=== PATIENT | female | born 1960 | race Caucasian/White ===

== ENCOUNTER 2017-08-02 16:54 | Outpatient (CLI) | payer MEDICARE | END 2017-08-02 16:55 | disposition critical access hospital (66) | LOC: EMS 16:54 | PROVIDERS: ATTEND Surgery | DX: R03.1 Nonspecific low blood-pressure reading (principal) | CPT/HCPCS: A0425; A0427 ==

== ENCOUNTER 2017-08-02 17:05 | Emergency (ER) | payer MEDICARE ==
[2017-08-02] MEDS ORDERED: SODIUM CHLORIDE 0.9% 1,000 ML IV ONE (17:25)
--- NOTE | 2017-08-02 17:27 | ED Physician Documentation ---
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 She was getting up and doing light work around the house after watching TV shows for an hour and a half when she started to feel flushed and nauseous, she was checking her blood pressure, the nurses notes that it was 70 over something, she says it was actually 112/46 with heart rate of 96. Then she had a short syncopal episode without injury. She still still feels weak and dizzy. 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 - Present Medications Home Medications: Ambulatory Orders Medication Instructions Recorded Confirmed Oxybutynin [Ditropan] 5 mg PO DAILY 07/30/14 08/05/14 Levothyroxine Sodium 07/18/16 Cetirizine [ZyrTEC] 10 mg PO DAILY 08/02/17 08/02/17 Potassium Chloride 10 meq PO DAILY #5 tablet.er 08/02/17 Pseudoephedrine [Sudafed] 30 mg PO Q6H 08/02/17 08/02/17 - Allergies Allergies/Adverse Reactions: Allergies Allergy/AdvReac Type Severity Reaction Status Date / Time codeine [Codeine] Allergy Intermediate vomiting Verified 08/05/14 12:31 morphine Allergy Intermediate vomiting Verified 08/05/14 12:31 - Social History Does the pt smoke?: No Smoking Status: Never smoker Does the pt drink ETOH?: Yes Does the pt have substance abuse?: No - Family History Family history: reports: Non contributory PD ED PE NORMAL - Vitals Vital signs reviewed: Yes - General General: Alert and oriented X 3, No acute distress - HEENT HEENT: PERRL, EOMI - Neck Neck: Supple, no meningeal sign, No bony TTP - Cardiac Cardiac: RRR, No murmur - Respiratory Respiratory: No respiratory distress, Clear bilaterally - Abdomen Abdomen: Normal bowel sounds, Soft, Non tender - Back Back: No CVA TTP, No spinal TTP - Derm Derm: Normal color, Warm and dry - Extremities Extremities: No edema, No calf tenderness / cord - Neuro Neuro: Alert and oriented X 3, Normal speech - Psych Psych: Normal mood, Normal affect NIHSS - Time Time: 17:20 - Level of Consciousness Level of consciousness: (0) Alert, Keenly responsive LOC Questions: (0) Answers both Q's correct LOC Commands: (0) Performs both correctly - Gaze Best Gaze: (0) Normal - Visual Visual: (0) No loss - Facial Palsy Facial Palsy: (0) Normal, symmetrical movement - Motor Arms (both separate) Motor Arm (right): (0) No drift Motor Arm (left): (0) No drift - Motor Legs (both separate) Motor Leg (right): (0) No drift Motor Leg (left): (0) No drift - Limb Ataxia Limb Ataxia: (0) Absent - Sensory Sensory: (0) Normal - Best Language Best Language: (0) No aphasia - Dysarthria Dysarthria: (0) Normal - Extinction and Inattention (formally neg Extinction and inattention: (0) No abnormality - Total Score/Results Total Score/Result: 0 Results - Vitals Vitals: Vital Signs - 24 hr 08/02/17 08/02/17 17:06 17:52 Temperature 37.0 C 36.9 C Heart Rate 69 77 Respiratory 16 18 Rate Blood Pressure 109/76 153/92 H O2 Saturation 100 97 Oxygen O2 Source Room air - EKG (time done) 1712 Rate: Rate (enter#) (87) Rhythm: NSR [place]: Normal Intervals: Prolonged QT (Borderline at 504 ms corrected.) QRS: Low voltage Computer interpretation: Agree with computer - Labs Labs: Laboratory Tests 08/02/17 08/02/17 08/02/17 17:35 17:35 17:35 WBC 8.2 RBC 4.12 L Hgb 12.2 Hct 36.3 L MCV 88.1 MCH 29.7 MCHC 33.7 RDW 14.2 Plt Count 195 MPV 8.7 Neut # 4.3 Lymph # 3.2 [place] # 0.5 Eos # 0.2 Baso # 0.1 Absolute Nucleated RBC 0.01 Nucleated RBC % 0.1 Sodium 138 Potassium 3.0 L Chloride 104 Carbon Dioxide 23 Anion Gap 11.0 BUN 8 Creatinine 1.0 Estimated GFR (MDRD) 58 L Glucose 115 H Calcium 8.7 Magnesium 1.8 Total Bilirubin 0.5 AST 27 ALT 27 Alkaline Phosphatase 47 Troponin I < 0.04 Total Protein 6.2 L Albumin 3.7 Globulin 2.5 Albumin/Globulin Ratio 1.5 Lipase 25 Cortisol Urine Color Urine Clarity Urine pH Ur Specific [place] Urine Protein Urine Glucose (UA) Urine Ketones Urine Occult Blood Urine Nitrite Urine Bilirubin Urine Urobilinogen Ur Leukocyte Esterase Ur Microscopic Review Urine Culture Comments Ethyl Alcohol < 5.0 08/02/17 08/02/17 17:35 18:21 WBC RBC Hgb Hct MCV MCH MCHC RDW Plt Count MPV Neut # Lymph # [place] # Eos # Baso # Absolute Nucleated RBC Nucleated RBC % Sodium Potassium Chloride Carbon Dioxide Anion Gap BUN Creatinine Estimated GFR (MDRD) Glucose Calcium Magnesium Total Bilirubin AST ALT Alkaline Phosphatase Troponin I Total Protein Albumin Globulin Albumin/Globulin Ratio Lipase Cortisol 4.2 Urine Color YELLOW Urine Clarity CLEAR Urine pH 6.0 Ur Specific [place] >=1.030 H Urine Protein NEGATIVE Urine Glucose (UA) NEGATIVE Urine Ketones NEGATIVE Urine Occult Blood NEGATIVE Urine Nitrite NEGATIVE Urine Bilirubin NEGATIVE Urine Urobilinogen 0.2 (NORMAL) Ur Leukocyte Esterase NEGATIVE Ur Microscopic Review NOT INDICATED Urine Culture Comments NOT INDICATED Ethyl Alcohol PD MEDICAL DECISION MAKING - ED course ED course: 57-year-old woman with syncopal episode and low blood pressure Prior to arrival , although I am getting conflicting measurements on what was it with either 70 systolic or 112/46. Regardless she has unremarkable vital signs and normal examination here, normal EKG. Lab work was notable for a cortisol level that was in the appropriate range for the time of day and hypokalemia which is a recurrent problem for her. She does have high urine specific gravity suggesting dehydration. Treatment in the emergency department consisted of 2 L of IV fluids and oral potassium supplementation. Departure - Departure Disposition: 01 Home, Self Care Clinical Impression: Orthostatic hypotension, Dehydration, Hypokalemia Condition: Good Record reviewed to determine appropriate education?: Yes Instructions: Hypokalemia Dc, ED Dehydration Prescriptions: Potassium Chloride 10 meq PO DAILY #5 tablet.er Comments: Call your doctor to arrange a follow-up appointment, make the next available appointment. In the interim, return anytime if worse or if new symptoms develop. Your blood pressure was elevated today on check into the emergency department. This does not mean that you have hypertension, it is a common phenomenon to come to the emergency department and have elevated blood pressure. I recommend that she see your primary care physician within the week to have it rechecked when you are feeling better.
[2017-08-02 17:42] LABS: BASOPHILS # (AUTO) 0.1 10^3/uL (0.0-0.1); EOSINOPHILS # (AUTO) 0.2 10^3/uL (0.0-0.7); HCT - HEMATOCRIT 36.3 % (37.0-47.0); HGB - HEMOGLOBIN 12.2 g/dL (12.0-16.0); LYMPHOCYTES # (AUTO) 3.2 10^3/uL (1.5-3.5); LYMPHOCYTES % (AUTO) 38.8 %; MEAN CORPUSCULAR HEMOGLOBIN 29.7 pg (27.0-31.0); MEAN CORPUSCULAR HGB CONC 33.7 g/dL (32.0-36.0); MEAN CORPUSCULAR VOLUME 88.1 fL (81.0-99.0); MEAN PLATELET VOLUME 8.7 fL (7.9-10.8); MONOCYTES # (AUTO) 0.5 10^3/uL (0.0-1.0); MONOCYTES % (AUTO) 5.6 %; NEUTROPHILS # (AUTO) 4.3 10^3/uL (1.5-6.6); NEUTROPHILS % (AUTO) 52.6 %; NUCLEATED RED BLOOD CELLS AUTO 0.1 /100WBC; RED BLOOD COUNT 4.12 10^6/uL (4.20-5.40); RED CELL DISTRIBUTION WIDTH 14.2 % (12.0-15.0); UNCORRECTED WHITE BLOOD COUNT 8.2 x10^3/uL; WHITE BLOOD COUNT 8.2 x10^3/uL (4.8-10.8)
[2017-08-02 17:54] LABS: ALBUMIN/GLOBULIN RATIO 1.5 (1.0-2.2); BILIRUBIN,TOTAL 0.5 mg/dL (0.2-1.0); BUN - BLOOD UREA NITROGEN 8 mg/dL (6-20); CALCIUM 8.7 mg/dL (8.5-10.3); CARBON DIOXIDE - CO2 23 mmol/L (21-32); CHLORIDE 104 mmol/L (101-111); GFR - MDRD 58 (>89); GLUCOSE 115 mg/dL (70-100); LIPASE 25 U/L (22-51); MAGNESIUM 1.8 mg/dL (1.7-2.8); SODIUM 138 mmol/L (135-145); TOTAL PROTEIN 6.2 g/dL (6.7-8.2)
[2017-08-02 18:25] LABS: BILIRUBIN,URINE NEGATIVE (NEGATIVE)
[2017-08-02 18:27] LABS: UA CHARGE (STRIP ONLY) YES; UR CULTURE IF IND NOT INDICATED
[2017-08-02] MEDS ORDERED: POTASSIUM BICARB 25 MEQ TABLET PO STA (18:47)
[2017-08-02] MEDS ORDERED: POTASSIUM BICARB 25 MEQ TABLET PO ONE (19:02)
[2017-08-02 19:29] VITALS: BP 100/68
== END 2017-08-02 19:30 | disposition home or self-care (01) ==
LOC: EDUNIT# → ED 17:05
DX: I95.1 Orthostatic hypotension (principal); E86.0 Dehydration; E87.6 Hypokalemia; R03.0 Elevated blood-pressure reading, without diagnosis of hypertension; E23.0 Hypopituitarism; E03.9 Hypothyroidism, unspecified; Z79.52 Long term (current) use of systemic steroids
CPT/HCPCS: 36415; 80053; 81003; 82533; 83690; 83735; 84484; 85025; 93005; 96360; 99284; 99285; A9270; G0480; 80320; 81001; 87086

== ENCOUNTER 2017-12-23 23:32 | Emergency (ER) | payer MEDICARE ==
[2017-12-23 23:46] VITALS: BP 114/81
--- NOTE | 2017-12-23 23:53 | ED Physician Documentation ---
PD HPI HEENT - Stated complaint Stated Complaint: BLEEDING RT EAR - Chief complaint Chief Complaint: Heent - History obtained from History obtained from: Patient - History of Present Illness Timing - onset: Today Timing - details: Abrupt onset Location: Right ear Similar symptoms before: Has not had sx before Recently seen: Not recently seen - Additional information Additional information: Patient is a 57 year old female presenting to the emergency department for ear pain. Patient states that tonight her ear was bleeding and clots were coming out. Patient states that she had cleaned with a q-tip earlier and also had put her finger in her ear. Review of Systems Constitutional: reports: Reviewed and negative Eyes: reports: Reviewed and negative Ears: reports: Other (ear bleeding) Nose: reports: Reviewed and negative Throat: reports: Reviewed and negative Cardiac: reports: Reviewed and negative Respiratory: reports: Reviewed and negative GI: reports: Reviewed and negative : reports: Reviewed and negative Skin: reports: Reviewed and negative Musculoskeletal: reports: Reviewed and negative Neurologic: denies: Headache, Head injury Psychiatric: reports: Reviewed and negative Endocrine: reports: Reviewed and negative Immunocompromised: denies: Immunocompromised PD PAST MEDICAL HISTORY - Past Medical History Cardiovascular: None Respiratory: None Neuro: Fainting Endocrine/Autoimmune: HyPOthyroidism GI: GERD : Kidney stones HEENT: None Psych: None Musculoskeletal: Chronic back pain Derm: None Other Past Medical History: Hypopituitary, hypothyroid - Past Surgical History 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 - Present Medications Home Medications: Ambulatory Orders Medication Instructions Recorded Confirmed Oxybutynin [Ditropan] 5 mg PO DAILY 07/30/14 08/05/14 Levothyroxine Sodium 0.125 mcg PO DAILY 07/18/16 Cetirizine [ZyrTEC] 10 mg PO DAILY 08/02/17 08/02/17 - Allergies Allergies/Adverse Reactions: Allergies Allergy/AdvReac Type Severity Reaction Status Date / Time codeine [Codeine] Allergy Intermediate vomiting Verified 12/23/17 23:47 morphine Allergy Intermediate vomiting Verified 12/23/17 23:47 - Social History Does the pt smoke?: No Smoking Status: Never smoker Does the pt drink ETOH?: Yes Does the pt have substance abuse?: No - Immunizations Immunizations are current?: Yes PD ED PE NORMAL - Vitals Vital signs reviewed: Yes - General General: Alert and oriented X 3 - HEENT HEENT: PERRL, Moist mucous membranes - Neck Neck: Supple, no meningeal sign - Cardiac Cardiac: RRR - Respiratory Respiratory: No respiratory distress - Abdomen Abdomen: Non distended - Derm Derm: Normal color - Extremities Extremities: No deformity - Neuro Neuro: Alert and oriented X 3, No motor deficit, Normal speech Eye Opening: Spontaneous Motor: Obeys Commands Verbal: Oriented GCS Score: 15 - Psych Psych: Normal mood PD ED PE EXPANDED - HEENT HEENT: Other (small superficial laceration in right auditory canal, no active bleeding but clotted blood in the canal) Results - Vitals Vitals: Vital Signs - 24 hr 12/23/17 12/23/17 23:44 23:46 Temperature 36.6 C Heart Rate 87 Respiratory 16 Rate Blood Pressure 114/81 H O2 Saturation 95 Oxygen O2 Source Room air PD MEDICAL DECISION MAKING - ED course Complexity details: reviewed old records, re-evaluated patient, considered differential, d/w patient ED course: patient was seen and examined at bedside. Patient's canal was cleaned and revealed a very small, superficial laceration, likely secondary to the patient' s nail. there was no active bleeding and no further work up was necessary. Patient was stable for discharge with outpatient follow up. Departure - Departure Disposition: 01 Home, Self Care Clinical Impression: Laceration of ear canal Condition: Good Instructions: ED Laceration All Follow-Up: Radha Moran MD [Primary Care Provider] - As Needed Comments: Your symptoms today are being caused by a cut in your ear canal, likely secondary to your nails. You will need to keep it clean and dry and you can apply topical antibiotic if needed. You should follow up with your doctor as needed. The area may bleed again but it is not emergent. Discharge Date/Time: 12/24/17 00:03
== END 2017-12-24 00:03 | disposition home or self-care (01) ==
LOC: ED 23:32
DX: S01.311A Laceration without foreign body of right ear, initial encounter (principal); W22.8XXA Striking against or struck by other objects, initial encounter; E03.9 Hypothyroidism, unspecified
CPT/HCPCS: 99283

== ENCOUNTER 2018-05-31 16:41 | Emergency (ER) | payer MEDICARE ==
[2018-05-31 16:54] VITALS: BP 118/90
--- NOTE | 2018-05-31 17:14 | ED Physician Documentation ---
History of Present Illness - Stated complaint Stated Complaint: NECK PX/HAND NUMBNESS - Chief complaint Chief Complaint: General - History obtained from History obtained from: Patient - History of Present Illness Timing: Other (Since May 20 she has had numbness and tingling especially on the thumb side of her left hand with burning pain down the arm since being manipulated by a chiropractor. 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 - Present Medications Home Medications: Ambulatory Orders Medication Instructions Recorded Confirmed Oxybutynin [Ditropan] 5 mg PO DAILY 07/30/14 08/05/14 Levothyroxine Sodium 0.125 mcg PO DAILY 07/18/16 Cetirizine [ZyrTEC] 10 mg PO DAILY 08/02/17 08/02/17 Gabapentin 300 mg PO TID #90 capsule 05/31/18 HYDROcod/ACETAM 5/325 [[place] 5/325] 1 - 2 ea PO Q6H PRN #15 tablet 05/31/18 - Allergies Allergies/Adverse Reactions: Allergies Allergy/AdvReac Type Severity Reaction Status Date / Time codeine [Codeine] Allergy Intermediate vomiting Verified 05/31/18 16:54 morphine Allergy Intermediate vomiting Verified 05/31/18 16:54 - Social History Does the pt smoke?: No Smoking Status: Never smoker Does the pt drink ETOH?: Yes Does the pt have substance abuse?: No - Immunizations Immunizations are current?: Yes PD ED PE NORMAL - Vitals Vital signs reviewed: Yes - General General: Alert and oriented X 3, No acute distress - Neck Neck: Supple, no meningeal sign, No bony TTP - Extremities Extremities: Other (She has slightly weak scout leaser strength and thumb extension on the left with a week tricep reflex and numbness on the radial side of the hand.) - Neuro Neuro: Alert and oriented X 3, Normal speech Results - Vitals Vitals: Vital Signs - 24 hr 05/31/18 16:48 Temperature 37.3 C Heart Rate 87 Respiratory 18 Rate Blood Pressure 118/90 H O2 Saturation 98 Oxygen O2 Source Room air PD MEDICAL DECISION MAKING - ED course ED course: 58-year-old woman with signs and symptoms of what is likely a left C6 radiculopathy. No indication for emergent MRI and she already has a referral for one, just needs to be scheduled. She was given gabapentin and painkillers. She is already taking ibuprofen. - Sepsis Event Vital Signs: Vital Signs - 24 hr 05/31/18 16:48 Temperature 37.3 C Heart Rate 87 Respiratory 18 Rate Blood Pressure 118/90 H O2 Saturation 98 Oxygen O2 Source Room air Departure - Departure Disposition: Home, Self Care Clinical Impression: Cervical radiculopathy at C6 Condition: Good Record reviewed to determine appropriate education?: Yes Instructions: ED Cervical Radiculopathy Prescriptions: Gabapentin 300 mg PO TID #90 capsule HYDROcod/ACETAM 5/325 [[place] 5/325] 1 - 2 ea PO Q6H PRN #15 tablet PRN Reason: Pain Comments: Your blood pressure was elevated today on check into the emergency department. This does not mean that you have hypertension, it is a common phenomenon to come to the emergency department and have elevated blood pressure. I recommend that you see your primary care physician within the week to have it rechecked when you are feeling better. Discharge Date/Time: 05/31/18 17:35
== END 2018-05-31 17:35 | disposition home or self-care (01) ==
LOC: ED 16:41
DX: M54.12 Radiculopathy, cervical region (principal); R03.0 Elevated blood-pressure reading, without diagnosis of hypertension
CPT/HCPCS: 99283

== ENCOUNTER 2018-06-02 23:08 | Emergency (ER) | payer MEDICARE ==
[2018-06-02 23:16] VITALS: BP 141/67
[2018-06-02] MEDS ORDERED: ACETAMINOPHEN 500 MG TABLET PO STA (23:48)
--- NOTE | 2018-06-03 00:07 | ED Physician Documentation ---
History of Present Illness - Stated complaint Stated Complaint: NUMNESS,TINGLING ZAK ARMS - Chief complaint Chief Complaint: Ext Problem - History obtained from History obtained from: Patient - Additonal information Additional information: 58-year-old female presents to the emergency department with ongoing neck pain which radiates into her left arm. The patient mostly complains ofNumbness and tingling which radiates into her hands. The patient's symptoms have been progressively worsening over the past 10 days.Is concerned she has a herniated disc The patient. The patient denies fevers, motor weakness or acute trauma. The patient's symptoms are somewhat improved with her gabapentin, [place] and Flexeril but tonight were not controlled with these medications. The patient denies headache, fever, motor weakness, saddle anesthesia or urinary retention. No other associated symptoms. The patient is here this evening hoping for a clear answer for the etiology of her pain. The patient has been attempting to get an outpatient MRI. Review of Systems Constitutional: denies: Fever Eyes: denies: Loss of vision Ears: denies: Ear pain Nose: denies: Congestion Throat: denies: Sore throat Cardiac: denies: Chest pain / pressure Respiratory: denies: Dyspnea, Cough GI: denies: Abdominal Pain : denies: Dysuria Skin: denies: Rash Musculoskeletal: reports: Neck pain Neurologic: reports: Numbness. 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 - Present Medications Home Medications: Ambulatory Orders Medication Instructions Recorded Confirmed Gabapentin 300 mg PO TID #90 capsule 05/31/18 06/02/18 HYDROcod/ACETAM 5/325 [[place] 5/325] 1 - 2 ea PO Q6H PRN #15 tablet 05/31/1810/08 Cyclobenzaprine [Flexeril] 1 tab PO TID PRN 06/02/18 06/02/18 Naproxen [Naprosyn] 1 tab PO BID 06/02/18 06/02/18 - Allergies Allergies/Adverse Reactions: Allergies Allergy/AdvReac Type Severity Reaction Status Date / Time codeine [Codeine] Allergy Intermediate vomiting Verified 06/02/18 23:16 morphine Allergy Intermediate vomiting Verified 06/02/18 23:16 - Social History Does the pt smoke?: No Smoking Status: Never smoker Does the pt drink ETOH?: Yes Does the pt have substance abuse?: No - Immunizations Immunizations are current?: Yes - POLST Patient has POLST: No PD ED PE NORMAL - General General: Alert and oriented X 3 - HEENT HEENT: Atraumatic, PERRL, EOMI, Ears normal - Neck Neck: Supple, no meningeal sign, No JVD, No bruit, Other (The patient has paraspinal muscle tenderness in the left paraspinal muscles that continues into the trapezius) - Cardiac Cardiac: RRR - Respiratory Respiratory: No respiratory distress - Derm Derm: Normal color - Extremities Extremities: No deformity, Normal ROM s pain, Other (The patient has full active range of motion of the bilateral upper extremities, the patient has 5/5 muscle strength in the bilateral upper extremities and equal fresh foods clerk strength bilaterally. The patient has normal bilateral radial pulses and brisk cap refill and normal temperature in the bilateral upper extremities. There is no evidence of muscle wasting in the biceps or any other major muscle groups in the upper extremities) - Neuro Neuro: Alert and oriented X 3, bridges and buildings supervisor 2-12 intact, No motor deficit - Psych Psych: Normal affect Results - Vitals Vitals: Vital Signs - 24 hr 06/02/18 23:13 Temperature 36.5 C Heart Rate 85 Respiratory 18 Rate Blood Pressure 141/67 H O2 Saturation 99 Oxygen O2 Source Room air PD MEDICAL DECISION MAKING - ED course ED course: The patient drove herself to the emergency department, so I was unable to give her any medications that would alter her to help manage her acute pain. The patient wanted a clear answer for the etiology for her pain, I offered her a CT scan but the patient declined. I explained that our hospital does not have the capabilities to do an MRI on Sunday at 11:30 PM. The patient became upset with me and stated that I was not helping her. I offered to arrange transfer to a hospital that could perform an MRI for the patient. But the patient instead decided to leave the emergency department on her own accord. The patient had no gait abnormality and had no evidence of neurologic dysfunction upon leaving the emergency department. The patient did not wait for discharge instructions - Sepsis Event Vital Signs: Vital Signs - 24 hr 06/02/18 23:13 Temperature 36.5 C Heart Rate 85 Respiratory 18 Rate Blood Pressure 141/67 H O2 Saturation 99 Oxygen O2 Source Room air Departure - Departure Disposition: ED [place] Clinical Impression: Cervical radicular pain Condition: Good Discharge Date/Time: 06/02/18 23:57
== END 2018-06-02 23:57 | disposition left against medical advice (07) ==
LOC: ED 23:08
DX: M54.12 Radiculopathy, cervical region (principal); Z53.20 Procedure and treatment not carried out because of patient's decision for unspecified reasons
CPT/HCPCS: 99283

== ENCOUNTER 2019-02-06 18:49 | Emergency (ER) | payer MEDICARE ==
--- NOTE | 2019-02-06 20:14 | ED Physician Documentation ---
PD HPI SYNCOPE - Stated complaint Stated Complaint: LBP/PASSED OUT/CP - Chief complaint Chief Complaint: Cardiac - History obtained from History obtained from: Patient - History of Present Illness Witnessed: Unwitnessed Timing - onset: Enter time (18:00) Duration: Minutes Preceding symptoms: Light headed, Generalized weakness Injury occurred: None Pain level max: 0 Pain level now: 0 Similar symptoms before: No diagnosis, Work up / diagnostics (patient says she has had similar episodes in the past and has had many admissions with w/u that did not reveal etiology) Recently seen: Not recently seen - Additional information Additional information: was sitting at home watching TV at 6 PM when she found that she had either passed out or fell asleep in the chair. She stood up and immediately had generalized weakness, lightheadedness and syncopal episode. She awoke on floor, got to phone to call family and she had another syncopal episode during the conversation. She arrives to ED only feeling tired but otherwise well. She also had left-sided chest pain for few minutes between syncopal episodes that radiated to left axilla. Review of Systems Constitutional: reports: Reviewed and negative Eyes: reports: Reviewed and negative Cardiac: reports: Chest pain / pressure (resolved). denies: Palpitations, Pedal edema, Calf pain Respiratory: reports: Reviewed and negative GI: reports: Reviewed and negative : denies: Incontinent Neurologic: reports: Generalized weakness (immediately preceding syncope, resolved), Syncope. 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 - Present Medications Home Medications: Ambulatory Orders Medication Instructions Recorded Confirmed Gabapentin 300 mg PO TID #90 capsule 05/31/18 06/02/18 HYDROcod/ACETAM 5/325 [[place] 5/325] 1 - 2 ea PO Q6H PRN #15 tablet 05/31/18 06/02/18 Cyclobenzaprine [Flexeril] 1 tab PO TID PRN 06/02/18 06/02/18 Naproxen [Naprosyn] 1 tab PO BID 06/02/18 06/02/18 - Allergies Allergies/Adverse Reactions: Allergies Allergy/AdvReac Type Severity Reaction Status Date / Time codeine [Codeine] Allergy Intermediate vomiting Verified 06/02/18 23:16 morphine Allergy Intermediate vomiting Verified 06/02/18 23:16 - Social History Does the pt smoke?: No Smoking Status: Never smoker Does the pt drink ETOH?: Yes Does the pt have substance abuse?: Yes Substance Use and Type: Marijuana - Immunizations Immunizations are current?: Yes - POLST Patient has POLST: No PD ED PE NORMAL - Vitals Vital signs reviewed: Yes - General General: Alert and oriented X 3, No acute distress, Well developed/nourished - HEENT HEENT: PERRL, EOMI, Moist mucous membranes - Neck Neck: Supple, no meningeal sign, No bony TTP - Cardiac Cardiac: RRR, No murmur, No gallop, No rub - Respiratory Respiratory: No respiratory distress, Clear bilaterally - Abdomen Abdomen: Soft, Non tender - Derm Derm: Normal color, Warm and dry - Extremities Extremities: No edema - Neuro Neuro: Alert and oriented X 3, enrollment management manager 2-12 intact, No motor deficit, No sensory deficit, Normal speech Eye Opening: Spontaneous Motor: Obeys Commands Verbal: Oriented GCS Score: 15 Results - Vitals Vitals: Oxygen O2 Source Room air - EKG (time done) No standard instances Rate: Rate (enter#) (78) Rhythm: NSR [place]: Normal Intervals: Normal [place] QRS: Normal Ischemia: Normal ST segments, T wave inversion (V3, flat/biphasic V4) - Labs Labs: Laboratory Tests 02/06/19 02/06/19 02/06/19 19:00 19:00 19:00 WBC 7.6 RBC 4.33 Hgb 13.3 Hct 38.4 MCV 88.6 MCH 30.8 MCHC 34.7 RDW 14.7 Plt Count 203 MPV 9.9 Neut # (Auto) 3.4 Lymph # (Auto) 3.4 [place] # (Auto) 0.4 Eos # (Auto) 0.3 Baso # (Auto) 0.0 Absolute Nucleated RBC 0.01 Nucleated RBC % 0.2 Sodium 139 Potassium 3.1 L Chloride 102 Carbon Dioxide 27 Anion Gap 10.0 BUN 12 Creatinine 0.9 Estimated GFR (MDRD) 65 L Glucose 84 Calcium 9.0 Total Bilirubin 0.2 AST 18 ALT 17 Alkaline Phosphatase 65 Troponin I < 0.04 Total Protein 6.8 Albumin 4.2 Globulin 2.6 Albumin/Globulin Ratio 1.6 Lipase 38 - Rads (name of study) chest xray Radiology: Prelim report reviewed, See rad report PD MEDICAL DECISION MAKING - ED course Complexity details: reviewed old records, reviewed results, re-evaluated patient, considered differential, d/w patient ED course: remained asymptomatic during ED stay Departure - Departure Disposition: 01 Home, Self Care Clinical Impression: Hypokalemia Syncope Qualifiers: Syncope type: unspecified Qualified Code(s): R55 - Syncope and collapse Hypotension Qualifiers: Hypotension type: unspecified hypotension type Qualified Code(s): I95.9 - Hypotension, unspecified Condition: Good Instructions: ED Chest Pain Atypical Unkn Cause, ED Potassium Deficiency, ED Fainting Unkn Cause Follow-Up: Jenna Skinner PA [Primary Care Provider] - Discharge Date/Time: 02/06/19 22:01
[2019-02-06 20:16] LABS: BASOPHILS % (AUTO) 0.6 %; EOSINOPHILS # (AUTO) 0.3 10^3/uL (0.0-0.7); EOSINOPHILS % (AUTO) 3.9 %; HGB - HEMOGLOBIN 13.3 g/dL (12.0-16.0); LYMPHOCYTES # (AUTO) 3.4 10^3/uL (1.5-3.5); MEAN CORPUSCULAR HEMOGLOBIN 30.8 pg (27.0-31.0); MEAN CORPUSCULAR HGB CONC 34.7 g/dL (32.0-36.0); MEAN CORPUSCULAR VOLUME 88.6 fL (81.0-99.0); MEAN PLATELET VOLUME 9.9 fL (7.9-10.8); MONOCYTES # (AUTO) 0.4 10^3/uL (0.0-1.0); MONOCYTES % (AUTO) 5.2 %; NEUTROPHILS # (AUTO) 3.4 10^3/uL (1.5-6.6); NEUTROPHILS % (AUTO) 45.3 %; PLT - PLATELET COUNT 203 10^3/uL (130-450); RED BLOOD COUNT 4.33 10^6/uL (4.20-5.40); RED CELL DISTRIBUTION WIDTH 14.7 % (12.0-15.0); WHITE BLOOD COUNT 7.6 x10^3/uL (4.8-10.8)
[2019-02-06 20:32] LABS: ALBUMIN 4.2 g/dL (3.2-5.5); ALBUMIN/GLOBULIN RATIO 1.6 (1.0-2.2); BILIRUBIN,TOTAL 0.2 mg/dL (0.2-1.0); CREATININE 0.9 mg/dL (0.4-1.0); TOTAL PROTEIN 6.8 g/dL (6.7-8.2)
[2019-02-06] MEDS ORDERED: POTASSIUM BICARB 25 MEQ TABLET PO STA (20:34)
[2019-02-06] MEDS ORDERED: SODIUM CHLORIDE 0.9% 1,000 ML IV STA (20:34)
--- NOTE | 2019-02-06 20:37 | XRAY Report ---
Reason: syncope Procedure Date: 02/06/2019 Accession Number: [id number] / [id number] Procedure: XR - Chest 1 View X-Ray CPT Code: 39757 FULL RESULT: EXAM: CHEST RADIOGRAPHY EXAM DATE: 02/06/2019 08:14 PM. CLINICAL HISTORY: Syncope. COMPARISON: CHEST 2 VIEW PA/LAT 07/18/2016 9:38 PM. TECHNIQUE: 1 view. FINDINGS: Lungs/Pleura: No focal opacities evident. No pleural effusion. No pneumothorax. Mediastinum: Within exam limitations, the cardiomediastinal contour is normal. Other: None. IMPRESSION: No evidence for acute cardiopulmonary process. RADIA
[2019-02-06 21:51] VITALS: BP 106/67
== END 2019-02-06 22:01 | disposition home or self-care (01) ==
LOC: ED 18:49
DX: E87.6 Hypokalemia (principal); R55 Syncope and collapse; I95.9 Hypotension, unspecified; E03.9 Hypothyroidism, unspecified
CPT/HCPCS: 36415; 71045; 80053; 83690; 84484; 85025; 93005; 99284; A9270

== ENCOUNTER 2019-02-21 14:08 | Outpatient (CLI) | payer MEDICARE ==
[2019-02-21 18:38] LABS: BASOPHILS % (AUTO) 0.5 %; EOSINOPHILS # (AUTO) 0.3 10^3/uL (0.0-0.7); HGB - HEMOGLOBIN 11.9 g/dL (12.0-16.0); LYMPHOCYTES # (AUTO) 3.7 10^3/uL (1.5-3.5); MEAN CORPUSCULAR HEMOGLOBIN 29.9 pg (27.0-31.0); MEAN CORPUSCULAR HGB CONC 32.9 g/dL (32.0-36.0); MEAN PLATELET VOLUME 9.5 fL (7.9-10.8); MONOCYTES # (AUTO) 0.5 10^3/uL (0.0-1.0); MONOCYTES % (AUTO) 5.9 %; NEUTROPHILS # (AUTO) 4.5 10^3/uL (1.5-6.6); NEUTROPHILS % (AUTO) 49.6 %; PLT - PLATELET COUNT 218 10^3/uL (130-450); RED BLOOD COUNT 3.98 10^6/uL (4.20-5.40); RED CELL DISTRIBUTION WIDTH 15.2 % (12.0-15.0)
[2019-02-21 18:57] LABS: ALBUMIN/GLOBULIN RATIO 1.7 (1.0-2.2); ALKALINE PHOSPHATASE 51 IU/L (42-121); ALT ALANINE AMINOTRANSFERASE 20 IU/L (10-60); AST ASPARTATE AMINOTRANSFERASE 19 IU/L (10-42); BILIRUBIN,TOTAL 0.5 mg/dL (0.2-1.0); BUN - BLOOD UREA NITROGEN 11 mg/dL (6-20); CALCIUM 8.9 mg/dL (8.5-10.3); CARBON DIOXIDE - CO2 28 mmol/L (21-32); CHLORIDE 105 mmol/L (101-111); CHOL/HDL RATIO 4.6 (<4.4); CHOLESTEROL 266 mg/dL; GFR - MDRD 57 (>89); GLUCOSE 75 mg/dL (70-100); HDL CHOLESTEROL 58 mg/dL; LDL CHOLESTEROL,CALCULATED 183 mg/dL; LDL/HDL RATIO 3.2 (<4.4); SODIUM 140 mmol/L (135-145); TOTAL PROTEIN 6.4 g/dL (6.7-8.2); VLDL CHOLESTEROL 25 mg/dL
== END 2019-02-21 23:59 | disposition home or self-care (01) ==
LOC: LAB.WCP 14:08
PROVIDERS: ATTEND Physician Assistant
DX: Z79.899 Other long term (current) drug therapy (principal); Z13.220 Encounter for screening for lipoid disorders; E03.9 Hypothyroidism, unspecified
CPT/HCPCS: 36415; 80053; 80061; 83721; 84443; 85025

== ENCOUNTER 2019-04-18 02:33 | Outpatient (CLI) | payer MEDICARE | END 2019-04-18 02:34 | disposition critical access hospital (66) | LOC: EMS 02:33 | PROVIDERS: ATTEND Surgery | DX: R53.1 Weakness (principal); R42 Dizziness and giddiness | CPT/HCPCS: A0425; A0429 ==

== ENCOUNTER 2019-04-18 02:46 | Emergency (ER) | payer MEDICARE ==
[2019-04-18 03:47] LABS: BASOPHILS # (AUTO) 0.1 10^3/uL (0.0-0.1); BASOPHILS % (AUTO) 0.6 %; EOSINOPHILS # (AUTO) 0.2 10^3/uL (0.0-0.7); EOSINOPHILS % (AUTO) 2.3 %; HGB - HEMOGLOBIN 12.7 g/dL (12.0-16.0); LYMPHOCYTES # (AUTO) 4.2 10^3/uL (1.5-3.5); LYMPHOCYTES % (AUTO) 50.1 %; MEAN CORPUSCULAR HEMOGLOBIN 30.2 pg (27.0-31.0); MEAN CORPUSCULAR HGB CONC 32.6 g/dL (32.0-36.0); MEAN CORPUSCULAR VOLUME 92.6 fL (81.0-99.0); MEAN PLATELET VOLUME 10.5 fL (7.9-10.8); MONOCYTES # (AUTO) 0.5 10^3/uL (0.0-1.0); MONOCYTES % (AUTO) 6.2 %; NEUTROPHILS # (AUTO) 3.4 10^3/uL (1.5-6.6); NEUTROPHILS % (AUTO) 40.4 %; PLT - PLATELET COUNT 210 10^3/uL (130-450); RED CELL DISTRIBUTION WIDTH 13.4 % (12.0-15.0); WHITE BLOOD COUNT 8.4 x10^3/uL (4.8-10.8)
[2019-04-18 04:00] LABS: ALBUMIN 4.4 g/dL (3.2-5.5); ALBUMIN/GLOBULIN RATIO 1.8 (1.0-2.2); BILIRUBIN,TOTAL 0.3 mg/dL (0.2-1.0); CALCIUM 9.4 mg/dL (8.5-10.3); CREATININE 1.1 mg/dL (0.4-1.0); TOTAL PROTEIN 6.8 g/dL (6.7-8.2)
[2019-04-18] MEDS ORDERED: SODIUM CHLORIDE 0.9% 1,000 ML IV ONE (04:20)
--- NOTE | 2019-04-18 04:33 | ED Physician Documentation ---
PD HPI SYNCOPE - Stated complaint Stated Complaint: WEAKNESS/DIZZINESS - Chief complaint Chief Complaint: Neuro - History obtained from History obtained from: Patient - History of Present Illness Witnessed: Unwitnessed Timing - onset: Enter time (02:00), Today Duration: Unknown Preceding symptoms: Light headed, Other (neck tightness) Associated symptoms: None Contributing factors: None Injury occurred: None Pain level max: 0 Pain level now: 0 Similar symptoms before: No diagnosis Recently seen: Not recently seen - Additional information Additional information: 2 AM had sensation of tightness in throat/neck, lightheadedness, then syncopal episode. presents to ED asymptomatic. Review of Systems Constitutional: reports: Reviewed and negative Eyes: reports: Reviewed and negative Ears: reports: Reviewed and negative Cardiac: reports: Reviewed and negative Respiratory: reports: Reviewed and negative GI: reports: Reviewed and negative : denies: Dysuria, Frequency Neurologic: reports: Syncope. 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 - Present Medications Home Medications: Ambulatory Orders Medication Instructions Recorded Confirmed Gabapentin 300 mg PO TID #90 capsule 05/31/18 06/02/18 HYDROcod/ACETAM 5/325 [[place] 5/325] 1 - 2 ea PO Q6H PRN #15 tablet 05/31/18 06/02/18 Cyclobenzaprine [Flexeril] 1 tab PO TID PRN 06/02/18 06/02/18 Naproxen [Naprosyn] 1 tab PO BID 06/02/18 06/02/18 - Allergies Allergies/Adverse Reactions: Allergies Allergy/AdvReac Type Severity Reaction Status Date / Time codeine [Codeine] Allergy Intermediate vomiting Verified 06/02/18 23:16 morphine Allergy Intermediate vomiting Verified 06/02/18 23:16 - Social History Does the pt smoke?: No Smoking Status: Never smoker Does the pt drink ETOH?: Yes Does the pt have substance abuse?: Yes - Immunizations Immunizations are current?: Yes - POLST Patient has POLST: No PD ED PE NORMAL - Vitals Vital signs reviewed: Yes - General General: Alert and oriented X 3, No acute distress, Well developed/nourished - HEENT HEENT: Atraumatic, PERRL, EOMI - Neck Neck: No bony TTP - Cardiac Cardiac: RRR, No murmur, No gallop, No rub - Respiratory Respiratory: No respiratory distress, Clear bilaterally - Abdomen Abdomen: Soft, Non tender - Derm Derm: Normal color, Warm and dry - Extremities Extremities: No edema - Neuro Neuro: Alert and oriented X 3, nanny/household manager 2-12 intact, No motor deficit, No sensory deficit, Normal speech Eye Opening: Spontaneous Motor: Obeys Commands Verbal: Oriented GCS Score: 15 - Psych Psych: Normal mood, Normal affect Results - Vitals Vitals: Oxygen O2 Source Room air - EKG (time done) No standard instances Rate: Rate (enter#) (66) Rhythm: NSR [place]: Normal Intervals: Normal [place] QRS: Normal Ischemia: Normal ST segments - Labs Labs: Laboratory Tests 04/18/19 04/18/19 04/18/19 03:40 03:40 03:40 WBC 8.4 RBC 4.20 Hgb 12.7 Hct 38.9 MCV 92.6 MCH 30.2 MCHC 32.6 RDW 13.4 Plt Count 210 MPV 10.5 Neut # (Auto) 3.4 Lymph # (Auto) 4.2 H [place] # (Auto) 0.5 Eos # (Auto) 0.2 Baso # (Auto) 0.1 Absolute Nucleated RBC 0.00 Nucleated RBC % 0.0 Sodium 142 Potassium 3.2 L Chloride 104 Carbon Dioxide 27 Anion Gap 11.0 BUN 12 Creatinine 1.1 H Estimated GFR (MDRD) 51 L Glucose 71 Calcium 9.4 Total Bilirubin 0.3 AST 20 ALT 15 Alkaline Phosphatase 54 Troponin I < 0.04 Total Protein 6.8 Albumin 4.4 Globulin 2.4 Albumin/Globulin Ratio 1.8 Lipase 34 Urine Color Urine Clarity Urine pH Ur Specific [place] Urine Protein Urine Glucose (UA) Urine Ketones Urine Occult Blood Urine Nitrite Urine Bilirubin Urine Urobilinogen Ur Leukocyte Esterase Ur Microscopic Review Urine Culture Comments 04/18/19 11:35 WBC RBC Hgb Hct MCV MCH MCHC RDW Plt Count MPV Neut # (Auto) Lymph # (Auto) [place] # (Auto) Eos # (Auto) Baso # (Auto) Absolute Nucleated RBC Nucleated RBC % Sodium Potassium Chloride Carbon Dioxide Anion Gap BUN Creatinine Estimated GFR (MDRD) Glucose Calcium Total Bilirubin AST ALT Alkaline Phosphatase Troponin I Total Protein Albumin Globulin Albumin/Globulin Ratio Lipase Urine Color YELLOW Urine Clarity CLEAR Urine pH 6.0 Ur Specific [place] <=1.005 Urine Protein NEGATIVE Urine Glucose (UA) NEGATIVE Urine Ketones NEGATIVE Urine Occult Blood NEGATIVE Urine Nitrite NEGATIVE Urine Bilirubin NEGATIVE Urine Urobilinogen 0.2 (NORMAL) Ur Leukocyte Esterase NEGATIVE Ur Microscopic Review NOT INDICATED Urine Culture Comments NOT INDICATED - Rads (name of study) chest xray Radiology: Prelim report reviewed, See rad report cardiac echo Radiology: Prelim report reviewed, See rad report PD MEDICAL DECISION MAKING - ED course Complexity details: reviewed old records, reviewed results, re-evaluated patient, considered differential, d/w patient Departure - Departure Disposition: 01 Home, Self Care Clinical Impression: Hypotension Condition: Good Follow-Up: Jenna Skinner PA [Primary Care Provider] - Within 3 Days Comments: Please continue home medications as previously instructed. Please follow-up with your primary care physician and seafood packer in the next 2 to 3 days. Return to ED sooner if experience worsening symptoms or have other concerns. Discharge Date/Time: 04/18/19 13:18
[2019-04-18] MEDS ORDERED: SODIUM CHLORIDE 0.9% 1,000 ML IV STA ×2 (04:36→07:34)
[2019-04-18] MEDS ORDERED: HYDROCORTISONE SUCCINATE 100 MG/2 ML VIAL IVP STA (09:56)
--- NOTE | 2019-04-18 10:16 | XRAY Report ---
Reason: syncope, hypotension Procedure Date: 04/18/2019 Accession Number: [id number] / [id number] Procedure: XR - Chest 2 View X-Ray CPT Code: 73634 FULL RESULT: EXAM: CHEST RADIOGRAPHY EXAM DATE: 04/18/2019 10:07 AM. CLINICAL HISTORY: Syncope, hypotension. COMPARISON: CHEST 1 VIEW 02/06/2019 8:03 PM. TECHNIQUE: 2 views. FINDINGS: Lungs/Pleura: Linear atelectasis left lung base. Biapical pleural thickening No focal opacities evident. No pleural effusion. No pneumothorax. Normal volumes. Mediastinum: Heart and mediastinal contours are unremarkable. Other: None. IMPRESSION: Linear atelectasis left lung base RADIA
[2019-04-18 11:41] LABS: BILIRUBIN,URINE NEGATIVE (NEGATIVE); GLUCOSE, URINE (UA) NEGATIVE (NEGATIVE); KETONES,URINE (UA) NEGATIVE (NEGATIVE); LEUKOCYTE ESTERASE, URINE NEGATIVE (NEGATIVE); NITRITE,URINE NEGATIVE (NEGATIVE); OCCULT BLOOD,URINE NEGATIVE (NEGATIVE); PROTEIN,URINE NEGATIVE (NEGATIVE); UROBILINOGEN,URINE 0.2 (NORMAL) E.U./dL (NORMAL)
[2019-04-18 11:46] LABS: CLARITY,URINE CLEAR (CLEAR)
--- NOTE | 2019-04-18 13:10 | ED Physician Documentation ---
ED Addendum - Addendum Addendum: 04/18/19 13:08 Patient received an handoff from off going ED physician with plan to obtain urine sample and give Solu-Cortef. Also awaiting chest x-ray and echo results. Patient's blood pressure improved, particularly after steroids. Patient no longer had any near syncope, dizziness, lightheadedness, or other complaints in the ED. Patient is ambulating on her own. Urinalysis returned unremarkable. Chest x-ray did not find evidence of acute findings. Still awaiting echo resul ts, but patient demanding to leave. Feel this is appropriate and advised on follow-up with both her jack prizer and primary care physician. Impression: hypotension
[2019-04-18 13:18] VITALS: BP 124/76
== END 2019-04-18 13:18 | disposition home or self-care (01) ==
LOC: EDUNIT# → ED 02:46
DX: I95.9 Hypotension, unspecified (principal)
CPT/HCPCS: 71046; 80053; 81001; 81003; 83690; 84484; 85025; 87086; 93005; 93306; 96361; 96374; 99284

== ENCOUNTER 2019-06-01 17:07 | Outpatient (CLI) | payer MEDICARE | END 2019-06-01 17:08 | disposition critical access hospital (66) | LOC: EMS 17:07 | PROVIDERS: ATTEND Surgery | DX: R06.02 Shortness of breath (principal); R55 Syncope and collapse | CPT/HCPCS: A0425; A0427 ==

== ENCOUNTER 2019-06-01 17:20 | Emergency (ER) | payer MEDICARE ==
--- NOTE | 2019-06-01 17:27 | ED Physician Documentation ---
History of Present Illness - Stated complaint Stated Complaint: LOW BP - Chief complaint Chief Complaint: General - History obtained from History obtained from: Patient - History of Present Illness Timing: Yesterday - Additonal information Additional information: Patient is a 59-year-old female with history of adrenal and renal insufficiency issues not currently undergoing chronic steroid therapy but usually suffering from hypotension, presenting from home by EMS with concern for shortness of breath, particularly on exertion. Patient reports about 1 day of generally not feeling well with fatigue, subjective fever, chills. Patient denies productive cough, chest pain, abdominal pain, nausea, vomiting, urinary changes, or stool changes. No other improving or worsening factors noted. Review of Systems Constitutional: reports: Fever, Chills, Myalgias Cardiac: denies: Chest pain / pressure Respiratory: reports: Dyspnea. denies: Cough GI: denies: Abdominal Pain, Nausea, Vomiting, Diarrhea : denies: Dysuria Neurologic: reports: Generalized weakness. 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 - Present Medications Home Medications: Ambulatory Orders Medication Instructions Recorded Confirmed Gabapentin 300 mg PO TID #90 capsule 05/31/18 06/02/18 HYDROcod/ACETAM 5/325 [[place] 5/325] 1 - 2 ea PO Q6H PRN #15 tablet 05/31/18 06/02/18 Cyclobenzaprine [Flexeril] 1 tab PO TID PRN 06/02/18 06/02/18 Naproxen [Naprosyn] 1 tab PO BID 06/02/18 06/02/18 - Allergies Allergies/Adverse Reactions: Allergies Allergy/AdvReac Type Severity Reaction Status Date / Time codeine [Codeine] Allergy Intermediate vomiting Verified 06/01/19 17:26 morphine Allergy Intermediate vomiting Verified 06/01/19 17:26 - Social History Does the pt smoke?: No Smoking Status: Never smoker Does the pt drink ETOH?: Yes Does the pt have substance abuse?: Yes - Immunizations Immunizations are current?: Yes - POLST Patient has POLST: No PD ED PE NORMAL - Vitals Vital signs reviewed: Yes - General General: Alert and oriented X 3, No acute distress, Well developed/nourished - HEENT HEENT: Atraumatic, Pharynx benign. No: Moist mucous membranes (Dry) - Neck Neck: Supple, no meningeal sign - Cardiac Cardiac: RRR, No murmur - Respiratory Respiratory: No respiratory distress, Clear bilaterally - Abdomen Abdomen: Soft, Non tender, Non distended - Derm Derm: Normal color, Warm and dry, No rash - Extremities Extremities: No deformity, No tenderness to palpate, No edema - Neuro Neuro: Alert and oriented X 3, No motor deficit, No sensory deficit - Psych Psych: Normal mood, Normal affect Results - Vitals Vitals: Vital Signs - 24 hr 06/01/19 06/01/19 06/01/19 17:24 17:32 18:46 Temperature 34.7 C L 36.3 C L Heart Rate 57 L 58 L 68 Respiratory 20 18 18 Rate Blood Pressure 113/68 119/87 H 113/81 H O2 Saturation 100 99 99 06/01/19 19:09 Temperature 36.4 C L Heart Rate 73 Respiratory 16 Rate Blood Pressure 100/60 O2 Saturation 98 Oxygen O2 Source Room air - EKG (time done) 1738 Rate: Rate (enter#) (58) Rhythm: NSR Intervals: Prolonged QT Ischemia: Non specific changes - Labs Labs: Laboratory Tests 06/01/19 06/01/19 06/01/19 17:40 17:40 17:40 WBC 7.8 RBC 4.54 Hgb 13.0 Hct 40.1 MCV 88.3 MCH 28.6 MCHC 32.4 RDW 13.4 Plt Count 205 MPV 11.2 H Neut # (Auto) 3.7 Lymph # (Auto) 3.3 [place] # (Auto) 0.5 Eos # (Auto) 0.2 Baso # (Auto) 0.1 Absolute Nucleated RBC 0.00 Nucleated RBC % 0.0 Sodium 136 Potassium 3.8 Chloride 103 Carbon Dioxide 18 L Anion Gap 15.0 H BUN 14 Creatinine 0.9 Estimated GFR (MDRD) 65 L Glucose 99 Calcium 9.1 Total Bilirubin 1.4 H AST 18 ALT 12 Alkaline Phosphatase 50 Troponin I High Sens 3.3 Total Protein 6.9 Albumin 4.1 Globulin 2.8 Albumin/Globulin Ratio 1.5 Lipase 23 Urine Color Urine Clarity Urine pH Ur Specific [place] Urine Protein Urine Glucose (UA) Urine Ketones Urine Occult Blood Urine Nitrite Urine Bilirubin Urine Urobilinogen Ur Leukocyte Esterase Ur Microscopic Review Urine Culture Comments 06/01/19 18:45 WBC RBC Hgb Hct MCV MCH MCHC RDW Plt Count MPV Neut # (Auto) Lymph # (Auto) [place] # (Auto) Eos # (Auto) Baso # (Auto) Absolute Nucleated RBC Nucleated RBC % Sodium Potassium Chloride Carbon Dioxide Anion Gap BUN Creatinine Estimated GFR (MDRD) Glucose Calcium Total Bilirubin AST ALT Alkaline Phosphatase Troponin I High Sens Total Protein Albumin Globulin Albumin/Globulin Ratio Lipase Urine Color YELLOW Urine Clarity CLEAR Urine pH 6.0 Ur Specific [place] 1.020 Urine Protein NEGATIVE Urine Glucose (UA) NEGATIVE Urine Ketones >=80 H Urine Occult Blood NEGATIVE Urine Nitrite NEGATIVE Urine Bilirubin NEGATIVE Urine Urobilinogen 0.2 (NORMAL) Ur Leukocyte Esterase NEGATIVE Ur Microscopic Review NOT INDICATED Urine Culture Comments NOT INDICATED PD MEDICAL DECISION MAKING - ED course Complexity details: reviewed old records, reviewed results, re-evaluated patient, considered differential, d/w patient, d/w family ED course: Patient presenting with generalized fatigue and viral-like syndrome. Patient normally has lower blood pressures due to her underlying comorbidities and her blood pressure measurements today are not abnormal. Multiple measurements are above normal and not concerning. Patient responded well with IV fluids as well. Do not feel patient is experiencing an adrenal or renal crisis at this time. Patient denies other specific symptoms that raise high concerns for stroke, PE, pneumonia, cardiac pathology, intra-abdominal pathology or UTI, but considered. EKG and cardiac enzymes obtained which not reflect ischemia or other cardiac issues. Chest x-ray also obtained which not find evidence of pneumonia or other acute pathology. Screening lab work returned relatively unremarkable, as did urine. At this time, do not feel patient requires further invasive testing or hospitalization. Discussed results and recommendations including diet and hydration recommendations for home, return precautions, and appropriate follow- up. Patient voiced understanding and is comfortable with discharge plan. Friend is at bedside and able to provide ride home. Departure - Departure Disposition: 01 Home, Self Care Clinical Impression: Viral syndrome Condition: Good Instructions: ED Viral Syndrome Follow-Up: Jenna Skinner PA [Primary Care Provider] - Within 3 Days Comments: Please continue all home medications as previously instructed. Recommend hydration with Powerade/Gatorade and advancing diet as tolerated with small, bland, frequent meals. Follow-up with primary care physician in next 2 to 3 days and return to ED sooner if experience worsening symptoms or have other concerns.
[2019-06-01] MEDS ORDERED: SODIUM CHLORIDE 0.9% 1,000 ML IV ONE (17:33)
[2019-06-01 17:45] LABS: BASOPHILS # (AUTO) 0.1 10^3/uL (0.0-0.1); BASOPHILS % (AUTO) 0.8 %; EOSINOPHILS # (AUTO) 0.2 10^3/uL (0.0-0.7); EOSINOPHILS % (AUTO) 2.2 %; LYMPHOCYTES # (AUTO) 3.3 10^3/uL (1.5-3.5); LYMPHOCYTES % (AUTO) 42.5 %; MEAN CORPUSCULAR HEMOGLOBIN 28.6 pg (27.0-31.0); MEAN CORPUSCULAR HGB CONC 32.4 g/dL (32.0-36.0); MEAN CORPUSCULAR VOLUME 88.3 fL (81.0-99.0); MEAN PLATELET VOLUME 11.2 fL (7.9-10.8); MONOCYTES # (AUTO) 0.5 10^3/uL (0.0-1.0); MONOCYTES % (AUTO) 6.8 %; NEUTROPHILS # (AUTO) 3.7 10^3/uL (1.5-6.6); NEUTROPHILS % (AUTO) 47.3 %; PLT - PLATELET COUNT 205 10^3/uL (130-450); RED BLOOD COUNT 4.54 10^6/uL (4.20-5.40); RED CELL DISTRIBUTION WIDTH 13.4 % (12.0-15.0); WHITE BLOOD COUNT 7.8 x10^3/uL (4.8-10.8)
[2019-06-01 17:59] LABS: ALBUMIN 4.1 g/dL (3.2-5.5); ALBUMIN/GLOBULIN RATIO 1.5 (1.0-2.2); BILIRUBIN,TOTAL 1.4 mg/dL (0.2-1.0); CALCIUM 9.1 mg/dL (8.5-10.3); CREATININE 0.9 mg/dL (0.4-1.0); TOTAL PROTEIN 6.9 g/dL (6.7-8.2)
--- NOTE | 2019-06-01 18:25 | XRAY Report ---
Reason: cough Procedure Date: 06/01/2019 Accession Number: [id number] / [id number] Procedure: XR - Chest 2 View X-Ray CPT Code: 40641 FULL RESULT: EXAM: CHEST RADIOGRAPHY EXAM DATE: 06/01/2019 06:00 PM. CLINICAL HISTORY: Cough. COMPARISON: CHEST 2 VIEW 04/18/2019 9:29 AM. TECHNIQUE: 2 views. FINDINGS: Lungs/Pleura: No focal opacities evident. No pleural effusion. No pneumothorax. Normal volumes. Mediastinum: Heart and mediastinal contours are unremarkable. Other: None. IMPRESSION: No acute intrathoracic plain film abnormality. RADIA
[2019-06-01 18:51] LABS: BILIRUBIN,URINE NEGATIVE (NEGATIVE); GLUCOSE, URINE (UA) NEGATIVE (NEGATIVE); KETONES,URINE (UA) >=80 mg/dL (NEGATIVE); LEUKOCYTE ESTERASE, URINE NEGATIVE (NEGATIVE); NITRITE,URINE NEGATIVE (NEGATIVE); OCCULT BLOOD,URINE NEGATIVE (NEGATIVE); PROTEIN,URINE NEGATIVE (NEGATIVE); UROBILINOGEN,URINE 0.2 (NORMAL) E.U./dL (NORMAL)
[2019-06-01 18:53] LABS: CLARITY,URINE CLEAR (CLEAR)
[2019-06-01 19:13] VITALS: BP 100/60
== END 2019-06-01 19:21 | disposition home or self-care (01) ==
LOC: EDUNIT# → ED 17:20
DX: B34.9 Viral infection, unspecified (principal); I45.81 Long QT syndrome
CPT/HCPCS: 36415; 71046; 80053; 81001; 81003; 83690; 84484; 85025; 87086; 93005; 96360; 99282

== ENCOUNTER 2019-06-17 11:08 | Outpatient (CLI) | payer MEDICARE | END 2019-06-17 11:09 | disposition critical access hospital (66) | LOC: EMS 11:08 | PROVIDERS: ATTEND Surgery | DX: R42 Dizziness and giddiness (principal); R09.89 Other specified symptoms and signs involving the circulatory and respiratory systems | CPT/HCPCS: A0425; A0429 ==

== ENCOUNTER 2019-06-17 11:25 | Emergency (ER) | payer MEDICARE ==
[2019-06-17 12:11] LABS: BASOPHILS % (AUTO) 0.3 %; HGB - HEMOGLOBIN 13.2 g/dL (12.0-16.0); LYMPHOCYTES % (AUTO) 13.2 %; MEAN CORPUSCULAR HEMOGLOBIN 28.9 pg (27.0-31.0); MEAN CORPUSCULAR HGB CONC 32.8 g/dL (32.0-36.0); MEAN PLATELET VOLUME 10.2 fL (7.9-10.8); MONOCYTES # (AUTO) 0.2 10^3/uL (0.0-1.0); MONOCYTES % (AUTO) 2.5 %; NEUTROPHILS # (AUTO) 6.4 10^3/uL (1.5-6.6); NEUTROPHILS % (AUTO) 83.2 %; PLT - PLATELET COUNT 225 10^3/uL (130-450); RED BLOOD COUNT 4.57 10^6/uL (4.20-5.40); RED CELL DISTRIBUTION WIDTH 14.2 % (12.0-15.0); WHITE BLOOD COUNT 7.7 x10^3/uL (4.8-10.8)
[2019-06-17] MEDS ORDERED: SODIUM CHLORIDE 0.9% 1,000 ML IV ONE (12:18)
[2019-06-17 12:28] LABS: ALBUMIN 4.5 g/dL (3.2-5.5); ALBUMIN/GLOBULIN RATIO 1.6 (1.0-2.2); BILIRUBIN,TOTAL 0.7 mg/dL (0.2-1.0); CALCIUM 9.7 mg/dL (8.5-10.3); CREATININE 0.9 mg/dL (0.4-1.0); TOTAL PROTEIN 7.4 g/dL (6.7-8.2)
[2019-06-17 13:02] LABS: BILIRUBIN,URINE NEGATIVE (NEGATIVE); GLUCOSE, URINE (UA) NEGATIVE (NEGATIVE); KETONES,URINE (UA) NEGATIVE (NEGATIVE); LEUKOCYTE ESTERASE, URINE NEGATIVE (NEGATIVE); NITRITE,URINE NEGATIVE (NEGATIVE); OCCULT BLOOD,URINE NEGATIVE (NEGATIVE); PROTEIN,URINE NEGATIVE (NEGATIVE); UROBILINOGEN,URINE 0.2 (NORMAL) E.U./dL (NORMAL)
[2019-06-17 13:03] LABS: CLARITY,URINE CLEAR (CLEAR)
[2019-06-17] MEDS ORDERED: ONDANSETRON 4 MG/2 ML VIAL IVP STA (13:26)
--- NOTE | 2019-06-17 13:39 | ED Physician Documentation ---
History of Present Illness - Stated complaint Stated Complaint: DIZZY - Chief complaint Chief Complaint: General - History obtained from History obtained from: Patient, Family - History of Present Illness Timing: How many days ago (2-3) Pain level max: 0 Pain level now: 0 Improved by: nothing Worsened by: nothing - Additonal information Additional information: 59-year-old female presents to the emergency department stating that she is just not felt well for the past few days. She states that today she was cold and clammy. She has felt hot and cold over the past several days. Had some nausea. No vomiting. No diarrhea. No constipation. Does have a history of anxiety. No chest pain. No difficulty breathing. Mild sore throat. Some runny nose and congestion nothing makes it better or worse. She is concerned that she may be dehydrated. Review of Systems Ten Systems: 10 systems reviewed and negative Constitutional: reports: Chills. 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 - Present Medications Home Medications: Ambulatory Orders Medication Instructions Recorded Confirmed Gabapentin 300 mg PO TID #90 capsule 05/31/18 06/02/18 HYDROcod/ACETAM 5/325 [[place] 5/325] 1 - 2 ea PO Q6H PRN #15 tablet 05/31/18 06/02/18 Cyclobenzaprine [Flexeril] 1 tab PO TID PRN 06/02/18 06/02/18 Naproxen [Naprosyn] 1 tab PO BID 06/02/18 06/02/18 Ondansetron Odt [Zofran] 4 mg TL Q6H PRN #10 tablet 06/17/19 - Allergies Allergies/Adverse Reactions: Allergies Allergy/AdvReac Type Severity Reaction Status Date / Time codeine [Codeine] Allergy Intermediate vomiting Verified 06/17/19 11:31 morphine Allergy Intermediate vomiting Verified 06/17/19 11:31 - Social History Does the pt smoke?: No Smoking Status: Never smoker Does the pt drink ETOH?: Yes Does the pt have substance abuse?: Yes - Immunizations Immunizations are current?: Yes - POLST Patient has POLST: No PD ED PE NORMAL - Vitals Vital signs reviewed: Yes - General General: Alert and oriented X 3, No acute distress - HEENT HEENT: Moist mucous membranes - Neck Neck: Supple, no meningeal sign - Cardiac Cardiac: RRR, Strong equal pulses - Respiratory Respiratory: No respiratory distress, Clear bilaterally - Abdomen Abdomen: Soft, Non tender, Non distended - Derm Derm: Warm and dry - Extremities Extremities: No edema - Neuro Neuro: Alert and oriented X 3 - Psych Psych: Normal mood, Normal affect Results - Vitals Vitals: Vital Signs - 24 hr 06/17/19 06/17/19 06/17/19 11:25 11:38 13:52 Temperature 36.6 C Heart Rate 95 67 72 Respiratory 25 H 20 17 Rate Blood Pressure 119/87 H 127/80 124/81 H O2 Saturation 96 100 100 06/17/19 14:26 Temperature Heart Rate 73 Respiratory 18 Rate Blood Pressure 130/80 O2 Saturation 100 Oxygen O2 Source Room air - Labs Labs: Laboratory Tests 06/17/19 06/17/19 06/17/19 12:05 12:05 12:05 WBC 7.7 RBC 4.57 Hgb 13.2 Hct 40.2 MCV 88.0 MCH 28.9 MCHC 32.8 RDW 14.2 Plt Count 225 MPV 10.2 Neut # (Auto) 6.4 Lymph # (Auto) 1.0 L Smyth # (Auto) 0.2 Eos # (Auto) 0.0 Baso # (Auto) 0.0 Absolute Nucleated RBC 0.00 Nucleated RBC % 0.0 Sodium 135 Potassium 3.6 Chloride 99 L Carbon Dioxide 23 Anion Gap 13.0 BUN 14 Creatinine 0.9 Estimated GFR (MDRD) 65 L Glucose 117 H Calcium 9.7 Total Bilirubin 0.7 AST 27 ALT 22 Alkaline Phosphatase 57 Total Protein 7.4 Albumin 4.5 Globulin 2.9 Albumin/Globulin Ratio 1.6 Lipase 22 TSH 1.80 Free T4 0.78 Urine Color Urine Clarity Urine pH Ur Specific [place] Urine Protein Urine Glucose (UA) Urine Ketones Urine Occult Blood Urine Nitrite Urine Bilirubin Urine Urobilinogen Ur Leukocyte Esterase Ur Microscopic Review Urine Culture Comments Group A Strep Rapid 06/17/19 06/17/19 12:55 13:45 WBC RBC Hgb Hct MCV MCH MCHC RDW Plt Count MPV Neut # (Auto) Lymph # (Auto) Smyth # (Auto) Eos # (Auto) Baso # (Auto) Absolute Nucleated RBC Nucleated RBC % Sodium Potassium Chloride Carbon Dioxide Anion Gap BUN Creatinine Estimated GFR (MDRD) Glucose Calcium Total Bilirubin AST ALT Alkaline Phosphatase Total Protein Albumin Globulin Albumin/Globulin Ratio Lipase TSH Free T4 Urine Color YELLOW Urine Clarity CLEAR Urine pH 7.0 Ur Specific [place] <=1.005 Urine Protein NEGATIVE Urine Glucose (UA) NEGATIVE Urine Ketones NEGATIVE Urine Occult Blood NEGATIVE Urine Nitrite NEGATIVE Urine Bilirubin NEGATIVE Urine Urobilinogen 0.2 (NORMAL) Ur Leukocyte Esterase NEGATIVE Ur Microscopic Review NOT INDICATED Urine Culture Comments NOT INDICATED Group A Strep Rapid Negative - Rads (name of study) cxr Radiology: Prelim report reviewed, EMP read contemporaneously, See rad report ( Normal 2-view chest radiography) PD MEDICAL DECISION MAKING - ED course Complexity details: reviewed results, re-evaluated patient, considered differential, d/w patient, d/w family ED course: 59-year-old female with what appears to be a viral syndrome. She is very well- appearing, nontoxic. Afebrile. Tolerating p.o. without difficulty. Feels better after IV fluids. Will prescribe Zofran for home and encourage hydration. Abdomen is soft, nontender nondistended on serial exam. Patient counseled regarding signs and symptoms for which I believe and urgent re-evaluation would be necessary. Patient with good understanding of and agreement to plan and is comfortable going home at this time This document was made in part using voice recognition software. While efforts are made to proofread this document, sound alike and grammatical errors may occur. Departure - Departure Disposition: 01 Home, Self Care Clinical Impression: Viral syndrome, Dehydration Condition: Good Instructions: ED Dehydration, ED Viral Syndrome Follow-Up: Jenna Skinner PA [Primary Care Provider] - Within 1 week Prescriptions: Ondansetron Odt [Zofran] 4 mg TL Q6H PRN #10 tablet PRN Reason: Nausea / Vomiting Comments: Drink plenty of fluids. Return if you worsen. Follow-up with your doctor for further care. Discharge Date/Time: 06/17/19 14:37
--- NOTE | 2019-06-17 13:51 | XRAY Report ---
Reason: fever, cough Procedure Date: 06/17/2019 Accession Number: [id number] / [id number] Procedure: XR - Chest 2 View X-Ray CPT Code: 91190 FULL RESULT: EXAM: CHEST RADIOGRAPHY EXAM DATE: 06/17/2019 01:45 PM. CLINICAL HISTORY: Fever, cough. COMPARISON: CHEST 2 VIEW 06/01/2019 5:43 PM. TECHNIQUE: 2 views. FINDINGS: Lungs/Pleura: No focal opacities evident. No pleural effusion. No pneumothorax. Normal volumes. Mediastinum: Heart and mediastinal contours are unremarkable. Other: None. IMPRESSION: Normal 2-view chest radiography. RADIA
[2019-06-17 14:01] LABS: THYROID STIMULATING HORMONE 1.8 uIU/mL (0.34-5.60)
[2019-06-17 14:03] LABS: FREE T4 (FREE THYROXINE) 0.78 ng/dL (0.58-1.64)
[2019-06-17 14:27] VITALS: BP 130/80
== END 2019-06-17 14:37 | disposition home or self-care (01) ==
LOC: EDUNIT# → ED 11:25
DX: B34.9 Viral infection, unspecified (principal); E86.0 Dehydration
CPT/HCPCS: 36415; 71046; 80053; 81001; 81003; 83690; 84439; 84443; 85025; 87070; 87086; 87430; 93005; 96361; 96374; 99284

== ENCOUNTER 2019-07-04 13:34 | Outpatient (CLI) | payer MEDICARE ==
[~2019-07-04 13:34] MED LIST: GADOBUTROL 10 MMOL/10 ML VIAL ONE
[2019-07-04] MEDS ORDERED: GADOBUTROL 10 MMOL/10 ML VIAL ONE (14:55)
[2019-07-04] MEDS ORDERED: GADOBUTROL 10 MMOL/10 ML VIAL IVP ONE (16:56)
--- NOTE | 2019-07-07 09:46 | MRI Report ---
Reason: HISTORY OF PITUITARY TUMOR, SYNCOPE Procedure Date: 07/04/2019 Accession Number: [id number] / [id number] Procedure: MRI - Brain W/WO CPT Code: FULL RESULT: EXAM: MRI BRAIN AND PITUITARY WITHOUT AND WITH CONTRAST. EXAM DATE: 07/04/2019 01:51 PM. CLINICAL HISTORY: 59-year-old female. HISTORY OF PITUITARY TUMOR, SYNCOPE. COMPARISON: CT head 07/18/2016 TECHNIQUE: Multiplanar, multisequence T1-weighted and fluid-sensitive MR sequences of the brain and pituitary were performed. Other: None. IV Contrast: 7 ML Gadavist. FINDINGS: Brain Volume: Normal for age. Parenchyma: No masses, infarcts, or hemorrhage. Few scattered T2/FLAIR hyperintense periventricular, deep, and subcortical white matter lesions within cerebral hemispheres bilaterally. No abnormal enhancement. No parenchymal foci of susceptibility artifact. Pituitary: The patient is likely status post prior sinus surgery, now with enlarged empty sella appearance. The pituitary stalk is deviated to the left. There is apparent tethering and downward displacement of the optic chiasm (for example series 901 image 7), which may be possibly due to postsurgical scar tissue. There is pituitary tissue within the inferior left aspect of the sella measuring maximally 7 x 7 x 5 mm (AP by transverse by craniocaudal) (series 1201 image 7, series 1401 image 5), represent residual normal gland. No definite residual/recurrent sellar/suprasellar mass, however evaluation is limited without prior comparisons. Ventricles/Cisterns: No hydrocephalus. No abnormal extra-axial fluid collection or hemorrhage. Orbits: Symmetric and unremarkable. IAC: Symmetric and unremarkable. Vasculature: Normal signal flow void is seen in the major arterial structures at the skull base. The dural sinuses are patent and enhance normally. Sinuses: No acute sinus disease. Bones: No focal pathologic appearing marrow signal changes. Other: None. IMPRESSION: 1. Likely status post prior sinus surgery, now with enlarged empty sella appearance. The pituitary stalk is deviated to the left. There is apparent tethering and downward displacement of the optic chiasm (for example series 901 image 7), which may be possibly due to postsurgical scar tissue. There is pituitary tissue within the inferior left aspect of the sella measuring maximally 7 x 7 x 5 mm (AP by transverse by craniocaudal) (series 1201 image 7, series 1401 image 5), likely representing residual normal gland. No definite residual/recurrent sellar/suprasellar mass, however evaluation is limited without prior comparisons. 2. No MRI evidence of acute intracranial abnormality. Specifically, no evidence of acute or subacute infarct, acute intracranial hemorrhage, parenchymal mass, midline shift, or hydrocephalus. No abnormal parenchymal enhancement. 3. Few scattered white matter T2/FLAIR hyperintensities, nonspecific, and can be seen with the entire gamut of white matter conditions, including migraine headaches and as sequela of chronic microangiopathy. RADIA
== END 2019-07-04 13:35 | disposition home or self-care (01) ==
LOC: DI 13:34
PROVIDERS: ATTEND Physician Assistant
DX: R55 Syncope and collapse (principal); Z87.898 Personal history of other specified conditions
CPT/HCPCS: 70553; A9585

== ENCOUNTER 2019-09-30 20:11 | Outpatient (CLI) | payer MEDICARE | END 2019-09-30 20:12 | disposition EMS.NT | LOC: EMS 20:11 | PROVIDERS: ATTEND Surgery | DX: R10.9 Unspecified abdominal pain (principal) ==

== ENCOUNTER 2021-05-30 08:00 | Outpatient (CLI) | payer MEDICARE ==
[2021-05-30 17:48] LABS: BASOPHILS # (AUTO) 0.1 10^3/uL (0.0-0.1); BASOPHILS % (AUTO) 0.6 %; EOSINOPHILS # (AUTO) 0.2 10^3/uL (0.0-0.7); EOSINOPHILS % (AUTO) 1.6 %; HCT - HEMATOCRIT 43.1 % (37.0-47.0); HGB - HEMOGLOBIN 13.8 g/dL (12.0-16.0); LYMPHOCYTES # (AUTO) 2.5 10^3/uL (1.5-3.5); LYMPHOCYTES % (AUTO) 24.2 %; MEAN CORPUSCULAR HEMOGLOBIN 29.3 pg (27.0-31.0); MEAN CORPUSCULAR VOLUME 91.5 fL (81.0-99.0); MEAN PLATELET VOLUME 12.3 fL (7.9-10.8); MONOCYTES # (AUTO) 0.6 10^3/uL (0.0-1.0); MONOCYTES % (AUTO) 5.5 %; NEUTROPHILS % (AUTO) 67.7 %; PLT - PLATELET COUNT 219 10^3/uL (130-450); RED BLOOD COUNT 4.71 10^6/uL (4.20-5.40); RED CELL DISTRIBUTION WIDTH 13.9 % (12.0-15.0); WHITE BLOOD COUNT 10.3 x10^3/uL (4.8-10.8)
[2021-05-30 18:36] LABS: ALBUMIN 4.8 g/dL (3.2-5.5); ALBUMIN/GLOBULIN RATIO 1.9 (1.0-2.2); ALKALINE PHOSPHATASE 69 IU/L (42-121); ALT ALANINE AMINOTRANSFERASE 21 IU/L (10-60); AST ASPARTATE AMINOTRANSFERASE 22 IU/L (10-42); BILIRUBIN,TOTAL 0.5 mg/dL (0.2-1.0); BUN - BLOOD UREA NITROGEN 11 mg/dL (6-20); CALCIUM 9.6 mg/dL (8.5-10.3); CARBON DIOXIDE - CO2 27 mmol/L (21-32); CHLORIDE 106 mmol/L (101-111); CHOL/HDL RATIO 5.9 (<4.4); CHOLESTEROL 287 mg/dL; GFR - MDRD 57 (>89); GLUCOSE 101 mg/dL (70-100); HDL CHOLESTEROL 49 mg/dL; LDL CHOLESTEROL,CALCULATED 185 mg/dL; LDL/HDL RATIO 3.8 (<4.4); POTASSIUM 3.3 mmol/L (3.5-5.0); SODIUM 140 mmol/L (135-145); TOTAL PROTEIN 7.3 g/dL (6.7-8.2); TRIGLYCERIDES 265 mg/dL; VLDL CHOLESTEROL 53 mg/dL
[2021-05-30 19:07] LABS: THYROID STIMULATING HORMONE 0.03 uIU/mL (0.34-5.60)
[2021-05-30 19:49] LABS: FREE T4 (FREE THYROXINE) 1.52 ng/dL (0.58-1.64)
== END 2021-05-30 23:59 | disposition home or self-care (01) ==
LOC: LAB.WCP 08:00
PROVIDERS: ATTEND Family Medicine
DX: E27.40 Unspecified adrenocortical insufficiency (principal); E78.5 Hyperlipidemia, unspecified; E03.9 Hypothyroidism, unspecified
CPT/HCPCS: 36415; 80053; 80061; 83721; 84439; 84443; 85025

== ENCOUNTER 2021-09-21 07:22 | Emergency (ER) | payer MEDICARE ==
[2021-09-21] MEDS ORDERED: IBUPROFEN 600 MG TABLET PO STA (08:17)
--- NOTE | 2021-09-21 08:20 | ED Physician Documentation ---
PD HPI UPPER EXT INJURY - Stated complaint Stated Complaint: L ARM PX/GLF - Chief complaint Chief Complaint: Trauma Ext - History obtained from History obtained from: Patient - Additonal information Additional information: Patient comes emergency department chief complaint of left forearm pain after a trip and fall early this morning. She states that she was here in the emergency department with her mother last night and after bringing her mother home, she was walking to her cabin which is also on her mother's property. She tripped over her fire pit in the dark and states that she hit her left wrist and forearm on the stone of the fire pit. She is not sure exactly where she hit or how, but thinks she may have come down on her outstretched arm. She reports pain over the radial aspect of the dorsum of her left wrist and distal forearm. She states it hurts to supinate. No numbness or tingling that is new in the fingers. She states it hurts to flex her fingers and thumb. No deformity that the patient's noticed. Mild edema. No other injuries. Review of Systems Ten Systems: 10 systems reviewed and negative Constitutional: reports: Reviewed and negative Eyes: reports: Reviewed and negative Ears: reports: Reviewed and negative Nose: reports: Reviewed and negative Throat: reports: Reviewed and negative Cardiac: reports: Reviewed and negative Respiratory: reports: Reviewed and negative GI: reports: Reviewed and negative : reports: Reviewed and negative Skin: reports: Reviewed and negative Musculoskeletal: reports: Extremity pain Neurologic: reports: Reviewed and negative Psychiatric: reports: Reviewed and negative Endocrine: reports: Reviewed and negative Immunocompromised: reports: Reviewed and negative PD PAST MEDICAL HISTORY - Past Medical History Past Medical History: Yes Cardiovascular: None Respiratory: None Endocrine/Autoimmune: HyPOthyroidism GI: GERD : Kidney stones HEENT: None Psych: Anxiety Musculoskeletal: Chronic back pain Derm: None - Past Surgical History 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 - Present Medications Home Medications: Ambulatory Orders Medication Instructions Recorded Confirmed Gabapentin 300 mg PO TID #90 capsule 05/31/18 06/02/18 HYDROcod/ACETAM 5/325 [[place] 5/325] 1 - 2 ea PO Q6H PRN #15 tablet 05/31/18 06/02/18 Cyclobenzaprine [Flexeril] 1 tab PO TID PRN 06/02/18 06/02/18 Naproxen [Naprosyn] 1 tab PO BID 06/02/18 06/02/18 Ondansetron Odt [Zofran] 4 mg TL Q6H PRN #10 tablet 06/17/19 - Allergies Allergies/Adverse Reactions: Allergies Allergy/AdvReac Type Severity Reaction Status Date / Time codeine [Codeine] Allergy Intermediate vomiting Verified 09/21/21 07:34 morphine Allergy Intermediate vomiting Verified 09/21/21 07:34 - Social History Does the pt smoke?: No Smoking Status: Never smoker Does the pt drink ETOH?: Yes Does the pt have substance abuse?: Yes - Immunizations Immunizations are current?: Yes - POLST Patient has POLST: No PD ED PE NORMAL - Vitals Vital signs reviewed: Yes - General General: Alert and oriented X 3, No acute distress, Well developed/nourished - HEENT HEENT: Atraumatic, PERRL, EOMI, Moist mucous membranes - Neck Neck: Supple, no meningeal sign - Cardiac Cardiac: Strong equal pulses - Respiratory Respiratory: No respiratory distress - Derm Derm: Normal color, Warm and dry, No rash, Other (No contusion) - Extremities Extremities: No deformity, Other (Mild edema radial aspect of left forearm and wrist, no contusion or deformity) - Neuro Neuro: Alert and oriented X 3 - Psych Psych: Normal mood, Normal affect Results - Vitals Vitals: Vital Signs - 24 hr 09/21/21 07:31 Temperature 36.2 C L Heart Rate 71 Respiratory 16 Rate Blood Pressure 115/68 O2 Saturation 96 Oxygen O2 Source Room air - Rads (name of study) Left wrist x-ray Radiology: Final report received, EMP read indepedently, See rad report (Negative) Left forearm x-ray Radiology: Final report received, EMP read indepedently, See rad report (Negative) PD MEDICAL DECISION MAKING - ED course Complexity details: reviewed results, re-evaluated patient, considered differential, d/w patient ED course: Patient was given a dose of ibuprofen in the emergency department and sent for x-ray series of both the left forearm and the left wrist, which were unremarkable. Discussed with the patient we have not found a fracture of her wrist today or her forearm. We have discussed symptomatic management at home, as well as the usual indications for return. Departure - Departure Disposition: 01 Home, Self Care Clinical Impression: Wrist contusion Qualifiers: Encounter type: initial encounter Laterality: left Qualified Code(s): S60.212A - Contusion of left wrist, initial encounter Contusion of forearm, left Qualifiers: Encounter type: initial encounter Qualified Code(s): S50.12XA - Contusion of left forearm, initial encounter Condition: Stable Instructions: ED Contusion Upper Ext Comments: Your x-rays look good. There is no evidence of any breaks in the bones of your wrist or your forearm. You appear to have bruised the area, which is responsible for the pain and swelling. You may use ice packs and ibuprofen to help with the discomfort. These symptoms should improve on their own in the next few days. Please follow-up with your primary care physician for further concerns.
--- NOTE | 2021-09-21 08:36 | XRAY Report ---
PROCEDURE: Forearm LT INDICATIONS: fall/pain TECHNIQUE: 2 views of the forearm were acquired. COMPARISON: None FINDINGS: Bones: No fractures or dislocations. No suspicious bony lesions. Soft tissues: No suspicious soft tissue calcifications or masses. IMPRESSION: No acute forearm fracture or dislocation. Reviewed by: Donnie Granados MD on 09/21/2021 8:35 AM [facility] Approved by: Donnie Granados MD on 09/21/2021 8:35 AM [facility] Station ID: [id number]
--- NOTE | 2021-09-21 08:36 | XRAY Report ---
PROCEDURE: Wrist 3 View LT INDICATIONS: fall/pain TECHNIQUE: 3 views of the wrist were acquired. COMPARISON: None FINDINGS: Bones: No fractures or dislocations. No suspicious bony lesions. Mild osteoarthritic changes throu ghout wrist joints are seen. Scaphoid view: Scaphoid is grossly intact. Soft tissues: No suspicious soft tissue calcifications. IMPRESSION: No acute wrist fracture or dislocation. Mild osteoarthritic changes throughout wrist joints. Reviewed by: Donnie Granados MD on 09/21/2021 8:34 AM [facility] Approved by: Donnie Granados MD on 09/21/2021 8:34 AM [facility] Station ID: [id number]
[2021-09-21 09:06] VITALS: BP 108/61
== END 2021-09-21 09:06 | disposition home or self-care (01) ==
LOC: ED 07:22
DX: S60.212A Contusion of left wrist, initial encounter (principal); S50.12XA Contusion of left forearm, initial encounter; W01.0XXA Fall on same level from slipping, tripping and stumbling without subsequent striking against object, initial encounter; Y93.01 Activity, walking, marching and hiking; Y92.007 Garden or yard of unspecified non-institutional (private) residence as the place of occurrence of the external cause
CPT/HCPCS: 73090; 73110; 99282; 99283; A9270

== ENCOUNTER 2022-10-26 13:05 | Outpatient (CLI) | payer MEDICARE ==
[2022-10-26 14:29] LABS: BASOPHILS # (AUTO) 0.1 10^3/uL (0.0-0.1); BASOPHILS % (AUTO) 0.7 %; EOSINOPHILS # (AUTO) 0.3 10^3/uL (0.0-0.7); EOSINOPHILS % (AUTO) 2.6 %; HCT - HEMATOCRIT 40.2 % (37.0-47.0); HGB - HEMOGLOBIN 12.6 g/dL (12.0-16.0); LYMPHOCYTES # (AUTO) 3.9 10^3/uL (1.5-3.5); LYMPHOCYTES % (AUTO) 38.4 %; MEAN CORPUSCULAR HEMOGLOBIN 28.7 pg (27.0-31.0); MEAN CORPUSCULAR HGB CONC 31.3 g/dL (32.0-36.0); MEAN CORPUSCULAR VOLUME 91.6 fL (81.0-99.0); MEAN PLATELET VOLUME 10.7 fL (7.9-10.8); MONOCYTES # (AUTO) 0.6 10^3/uL (0.0-1.0); MONOCYTES % (AUTO) 5.5 %; NEUTROPHILS # (AUTO) 5.3 10^3/uL (1.5-6.6); NEUTROPHILS % (AUTO) 52.3 %; PLT - PLATELET COUNT 230 10^3/uL (130-450); RED BLOOD COUNT 4.39 10^6/uL (4.20-5.40); RED CELL DISTRIBUTION WIDTH 13.8 % (12.0-15.0); WHITE BLOOD COUNT 10.1 x10^3/uL (4.8-10.8)
[2022-10-26 14:46] LABS: ALBUMIN/GLOBULIN RATIO 1.3 (1.0-2.2); ALKALINE PHOSPHATASE 59 IU/L (42-121); ALT ALANINE AMINOTRANSFERASE 20 IU/L (10-60); AST ASPARTATE AMINOTRANSFERASE 21 IU/L (10-42); BILIRUBIN,TOTAL 0.4 mg/dL (0.2-1.0); BUN - BLOOD UREA NITROGEN 9 mg/dL (6-20); CALCIUM 8.7 mg/dL (8.5-10.3); CARBON DIOXIDE - CO2 26 mmol/L (21-32); CHLORIDE 103 mmol/L (101-111); CHOL/HDL RATIO 4.9 (<4.4); CHOLESTEROL 247 mg/dL; CREATININE 0.9 mg/dL (0.4-1.0); GFR - MDRD 64 (>89); GLUCOSE 97 mg/dL (70-100); HDL CHOLESTEROL 50 mg/dL; LDL CHOLESTEROL,CALCULATED 151 mg/dL; POTASSIUM 3.6 mmol/L (3.5-5.0); SODIUM 137 mmol/L (135-145); TRIGLYCERIDES 232 mg/dL; VLDL CHOLESTEROL 46 mg/dL
[2022-10-26 14:56] LABS: THYROID STIMULATING HORMONE < 0.08 uIU/mL (0.34-5.60)
[2022-10-26 15:28] LABS: FREE T4 (FREE THYROXINE) 1.41 ng/dL (0.58-1.64)
--- NOTE | 2022-10-26 15:33 | DEXA Report ---
PROCEDURE: Dexa Spine and/or Hip INDICATIONS: POST MENOPAUSAL TECHNIQUE: Dual energy x-ray absorptiometry (DXA) was performed on a [employer] System. Regions measur ed are the AP Spine, femoral neck, and if needed forearm. COMPARISON: None. FINDINGS: Lumbar Spine: Bone Mineral Density 0.91 g/cm/cm,T score -2.2, Left Femoral Neck: Bone Mineral Density 0.56 g/cm/cm, T score -3.4, Left Hip: Bone Mineral Density 0.62 g/cm/cm,T score -3.1, (T score greater or equal to -1.0: NORMAL) (T score from -1.1 to -2.4: OSTEOPENIA) (T score less than or equal to -2.5 to: OSTEOPOROSIS) Impression: Elevated fracture risk. 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 Osteopenia of the lumbar spine . Patients with diagnosis of osteoporosis or osteopenia should have regular bone mineral density assess ment. For those eligible for Medicare, routine testing is allowed once every 2 years. Testing frequ ency can be increased for patients who have rapidly progressing disease or for those who are receivin g medical therapy to restore bone mass. Reviewed by: Corbin Coombs MD on 10/26/2022 3:31 PM PST Approved by: Corbin Coombs MD on 10/26/2022 3:31 PM PST Station ID: [id number]
[2022-10-26 21:47] LABS: ESTIMATED AVERAGE GLUCOSE 120 mg/dL (70-100); HEMOGLOBIN A1c% 5.8 % (4.27-6.07)
== END 2022-10-26 13:06 | disposition home or self-care (01) ==
LOC: DI 13:05
PROVIDERS: ATTEND Physician Assistant
DX: M81.0 Age-related osteoporosis without current pathological fracture (principal); E78.5 Hyperlipidemia, unspecified; R73.01 Impaired fasting glucose; E03.9 Hypothyroidism, unspecified; Z79.899 Other long term (current) drug therapy; Z79.52 Long term (current) use of systemic steroids; Z78.0 Asymptomatic menopausal state
CPT/HCPCS: 36415; 80053; 80061; 83036; 83721; 84439; 84443; 85025

== ENCOUNTER 2022-10-26 13:05 | Outpatient (CLI) | payer MEDICARE ==
--- NOTE | 2022-10-27 10:49 | Mammography Report ---
BILATERAL DIGITAL SCREENING MAMMOGRAM 3D/2D: 10/26/2022 CLINICAL: Routine screening. Comparison is made to exams dated: 06/23/2015 mammogram, 05/31/2010 mammogram, 04/15/2014 mammogram, and 12/10/2006 mammogram - [facility]. Both breasts are heterogeneously dense, which may obscure small masses (category c / 51-75% glandular tissue). No significant masses, calcifications, or other findings are seen in either breast. There has been no significant interval change. IMPRESSION: NEGATIVE There is no mammographic evidence of malignancy. A 1 year screening mammogram is recommended. This exam was interpreted at Station ID: [id number]. NOTE: For mammograms, a report in lay terms will be sent to the patient. Approximately 15% of breast malignancies will not be visualized mammographically. In the management of a palpable breast mass, a negative mammogram must not discourage biopsy of a clinically suspicious lesion. Electronically Signed By: Francesca triana/telma:10/26/2022 17:32:50 ACR BI-RADS Category 1: Negative [id number] PARENCHYMAL PATTERN: (D) - The breast(s) demonstrate(s) heterogeneously dense fibroglandular jameson robles. BI-RADS CATEGORY: (1) - 1 RECOMMENDATION: (ANNUAL) - Recommend routine annual screening mammography. [id number] 1 year screening LATERALITY: (B)
== END 2022-10-26 13:06 | disposition home or self-care (01) ==
LOC: DI 13:05
PROVIDERS: ATTEND Physician Assistant
DX: Z12.31 Encounter for screening mammogram for malignant neoplasm of breast (principal)

== ENCOUNTER 2023-10-10 20:15 | Emergency (ER) | payer MEDICARE ==
[2023-10-10 21:26] LABS: BASOPHILS # (AUTO) 0.1 10^3/uL (0.0-0.1); BASOPHILS % (AUTO) 0.4 %; EOSINOPHILS # (AUTO) 0.1 10^3/uL (0.0-0.7); EOSINOPHILS % (AUTO) 1.2 %; HCT - HEMATOCRIT 47.2 % (37.0-47.0); HGB - HEMOGLOBIN 15.1 g/dL (12.0-16.0); LYMPHOCYTES # (AUTO) 4.7 10^3/uL (1.5-3.5); LYMPHOCYTES % (AUTO) 40.9 %; MEAN CORPUSCULAR HEMOGLOBIN 28.2 pg (27.0-31.0); MEAN CORPUSCULAR VOLUME 88.2 fL (81.0-99.0); MEAN PLATELET VOLUME 10.6 fL (7.9-10.8); MONOCYTES # (AUTO) 0.7 10^3/uL (0.0-1.0); MONOCYTES % (AUTO) 6.2 %; NEUTROPHILS # (AUTO) 5.8 10^3/uL (1.5-6.6); NEUTROPHILS % (AUTO) 50.8 %; PLT - PLATELET COUNT 267 10^3/uL (130-450); RED BLOOD COUNT 5.35 10^6/uL (4.20-5.40); RED CELL DISTRIBUTION WIDTH 13.2 % (12.0-15.0); WHITE BLOOD COUNT 11.5 x10^3/uL (4.8-10.8)
[2023-10-10 21:40] LABS: BILIRUBIN,URINE NEGATIVE (NEGATIVE); CLARITY,URINE CLOUDY (CLEAR); GLUCOSE, URINE (UA) NEGATIVE (NEGATIVE); KETONES,URINE (UA) NEGATIVE (NEGATIVE); LEUKOCYTE ESTERASE, URINE SMALL (NEGATIVE); NITRITE,URINE POSITIVE (NEGATIVE); OCCULT BLOOD,URINE MODERATE (NEGATIVE); PH,URINE 5.5 PH (5.0-7.5); PROTEIN,URINE 30 mg/dL (NEGATIVE); UROBILINOGEN,URINE 0.2 (NORMAL) E.U./dL (NORMAL)
[2023-10-10 21:52] LABS: THYROID STIMULATING HORMONE 0.04 uIU/mL (0.34-5.60)
[2023-10-10 21:54] LABS: BACTERIA,URINE Many /HPF (None Seen); EPITHELIAL CELLS,UR FEW Transitional /HPF (<= Few); MUCUS,URINE Moderate Strands; RBC,URINE TNTC /HPF (0-5); SQUAMOUS EPITHELIAL CELL,UR FEW Squamous (<= Few); WBC,URINE >25 /HPF (0-5)
--- NOTE | 2023-10-10 21:56 | ED Physician Documentation ---
PD HPI MHE - Stated complaint Stated Complaint: SI - Chief complaint Chief Complaint: Cardiac - History obtained from History obtained from: Patient - Additional information Additional information: HPI from patient. Patient complains of feeling depressed with suicidal thoughts for approximately 1 year. The onset coincided with the of her mother. These feelings and becoming more intense over the past 3 weeks with increasing thoughts of self- harm. Regarding plan, patient says she is considering taking an overdose of her prescription medications. Patient also complains of midline chest pain over the past 3 to 4 days. The onset was without inciting event and there have been no ameliorating or exacerbating factors. She says the pain is constant since onset. She denies history of similar symptoms. She denies shortness of breath, cough, leg swelling. Review of Systems Psychiatric: reports: Depressed, Suicidal PD PAST MEDICAL HISTORY - Past Medical History Past Medical History: Yes Cardiovascular: None Respiratory: None Endocrine/Autoimmune: HyPOthyroidism GI: GERD : Kidney stones HEENT: None Psych: Depression, Anxiety Musculoskeletal: Chronic back pain Derm: None Other Past Medical History: SI; SA= overdose of won meds. 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 - Present Medications Home Medications: Ambulatory Orders Medication Instructions Recorded Confirmed Gabapentin 300 mg PO TID #90 capsule 05/31/18 10/10/23 Cyclobenzaprine [Flexeril] 1 tab PO HS PRN 06/02/18 10/10/23 Naproxen [Naprosyn] 1 tab PO BID PRN 06/02/18 10/10/23 Ondansetron Odt [Zofran] 4 mg TL Q6H PRN #10 tablet 06/17/19 10/10/23 Alendronate [Fosamax] 70 mg PO Q7D 10/10/23 10/10/23 Alprazolam [Xanax] 0.25 mg PO DAILY PRN 10/10/23 10/10/23 Betamethasone Dipropionate 15 gm TP PRN 10/10/23 10/10/23 Buspirone HCl 10 mg PO BID 10/10/23 10/10/23 Cholecalciferol [Vitamin D3] 5,000 unit PO DAILY 10/10/23 10/10/23 Fludrocortisone [Florinef] 0.1 mg PO DAILY 10/10/23 10/10/23 Levothyroxine [Synthroid] 125 mcg PO QDAC 10/10/23 10/10/23 Oxymetazoline HCl [Nasal Rosebud] 1 spray NS DAILY PRN 10/10/23 10/10/23 Prednisone [Joel] 5 mg PO DAILY 10/10/23 10/10/23 Sertraline HCl 100 mg PO DAILY 10/10/23 10/10/23 Simethicone [Gas Relief] 180 mg PO DAILY 10/10/23 10/10/23 Trazodone HCl 50 mg PO HS 10/10/23 10/10/23 Vitamin B Complex 1 each PO DAILY 10/10/23 10/10/23 buPROPion [Wellbutrin Xl] 150 mg PO DAILY 10/10/23 10/10/23 oxyBUTYnin chloride [Oxybutynin 5 mg PO BID 10/10/23 10/10/23 Chloride] - Allergies Allergies/Adverse Reactions: Allergies Allergy/AdvReac Type Severity Reaction Status Date / Time codeine [Codeine] Allergy Intermediate vomiting Verified 10/10/23 21:06 morphine Allergy Intermediate vomiting Verified 10/10/23 21:06 - Social History Does the pt smoke?: No Smoking Status: Never smoker Does the pt drink ETOH?: Yes Does the pt have substance abuse?: Yes - Immunizations Immunizations are current?: Yes - POLST Patient has POLST: No PD ED PE NORMAL - Vitals Vital signs reviewed: Yes - General General: Alert and oriented X 3, No acute distress, Well developed/nourished - Cardiac Cardiac: RRR, No murmur - Respiratory Respiratory: No respiratory distress, Clear bilaterally - Abdomen Abdomen: Soft, Non tender - Derm Derm: Normal color, Warm and dry - Extremities Extremities: No edema - Neuro Neuro: Alert and oriented X 3 Eye Opening: Spontaneous Motor: Obeys Commands Verbal: Oriented GCS Score: 15 Results - Vitals Vitals: Vital Signs - 24 hr 10/10/23 10/11/23 20:25 04:41 Temperature 36.9 C 36.6 C Heart Rate 68 68 Respiratory 16 16 Rate Blood Pressure 127/89 H 98/60 O2 Saturation 97 96 Oxygen O2 Source Room air - EKG (time done) No standard instances EKG releavant findings:: EKG personally interpreted by author of this note. Relevant findings are: Rate: Rate (enter#) (87) Rhythm: NSR [place]: LAD Intervals: Normal OH, Prolonged QT QRS: Normal Ischemia: Normal ST segments - Labs Labs: Laboratory Tests 10/10/23 10/10/23 10/10/23 21:10 21:18 21:18 WBC 11.5 H RBC 5.35 Hgb 15.1 Hct 47.2 H MCV 88.2 MCH 28.2 MCHC 32.0 RDW 13.2 Plt Count 267 MPV 10.6 Neut # (Auto) 5.8 Lymph # (Auto) 4.7 H [place] # (Auto) 0.7 Eos # (Auto) 0.1 Baso # (Auto) 0.1 Absolute Nucleated RBC 0.00 Nucleated RBC % 0.0 Sodium 139 Potassium 3.0 L Chloride 102 Carbon Dioxide 26 Anion Gap 11.0 BUN 15 Creatinine 1.2 Estimated GFR (MDRD) 46 L Glucose 99 Calcium 10.1 Total Bilirubin 0.4 AST 14 ALT 12 Alkaline Phosphatase 57 Troponin I High Sens Total Protein 8.0 Albumin 4.8 Globulin 3.2 Albumin/Globulin Ratio 1.5 Lipase 29 TSH 0.04 L Urine Color YELLOW Urine Clarity CLOUDY Urine pH 5.5 Ur Specific [place] >=1.030 H Urine Protein 30 H Urine Glucose (UA) NEGATIVE Urine Ketones NEGATIVE Urine Occult Blood MODERATE H Urine Nitrite POSITIVE H Urine Bilirubin NEGATIVE Urine Urobilinogen 0.2 (NORMAL) Ur Leukocyte Esterase SMALL H Urine RBC TNTC H Urine WBC >25 H Ur Epithelial Cells FEW Transitional Ur Squamous Epith Cells FEW Squamous Urine Bacteria Many H Urine Mucus Moderate Strands Ur Microscopic Review INDICATED Urine Culture Comments INDICATED Salicylates < 1.5 Urine Opiates Screen NEGATIVE Ur Buprenorphine Scrn NEGATIVE Ur Oxycodone Screen NEGATIVE Urine Methadone Screen NEGATIVE Acetaminophen 0.2 Ur Barbiturates Screen NEGATIVE Ur Tricyclics Screen POSITIVE H Ur Phencyclidine Scrn NEGATIVE Ur Amphetamine Screen NEGATIVE U Methamphetamines Scrn NEGATIVE U Benzodiazepines Scrn NEGATIVE Urine Cocaine Screen NEGATIVE U Cannabinoids Screen POSITIVE H Ur Drug Screen Comment CUTOFF CONC BELOW: Ethyl Alcohol < 10.0 SARS-CoV-2 (PCR) 10/10/23 10/11/23 21:18 02:40 WBC RBC Hgb Hct MCV MCH MCHC RDW Plt Count MPV Neut # (Auto) Lymph # (Auto) [place] # (Auto) Eos # (Auto) Baso # (Auto) Absolute Nucleated RBC Nucleated RBC % Sodium Potassium Chloride Carbon Dioxide Anion Gap BUN Creatinine Estimated GFR (MDRD) Glucose Calcium Total Bilirubin AST ALT Alkaline Phosphatase Troponin I High Sens 5.0 Total Protein Albumin Globulin Albumin/Globulin Ratio Lipase TSH Urine Color Urine Clarity Urine pH Ur Specific [place] Urine Protein Urine Glucose (UA) Urine Ketones Urine Occult Blood Urine Nitrite Urine Bilirubin Urine Urobilinogen Ur Leukocyte Esterase Urine RBC Urine WBC Ur Epithelial Cells Ur Squamous Epith Cells Urine Bacteria Urine Mucus Ur Microscopic Review Urine Culture Comments Salicylates Urine Opiates Screen Ur Buprenorphine Scrn Ur Oxycodone Screen Urine Methadone Screen Acetaminophen Ur Barbiturates Screen Ur Tricyclics Screen Ur Phencyclidine Scrn Ur Amphetamine Screen U Methamphetamines Scrn U Benzodiazepines Scrn Urine Cocaine Screen U Cannabinoids Screen Ur Drug Screen Comment Ethyl Alcohol SARS-CoV-2 (PCR) NOT DETECTED - Rads (name of study) chest xray Relevant Findings:: Prelim report reviewed, See rad report PD Medical Decision Making - ED course Complexity details: reviewed results, re-evaluated patient, considered differential, d/w patient ED course: Patient presents due to ongoing but worsening depression with increasing thoughts of self-harm with plan of overdosing on her prescription medications. She also notes chest pain but this is not her chief complaint and she thinks the chest discomfort might be due to depression and anxiety. There are no findings on EKG to suggest acute coronary syndrome and her troponin is in normal range. Chest x-ray is normal, as well. No further emergent testing is indicated at this time regarding her chest pain. Other tests are performed at this time for medical clearance in order to obtain telepsychiatric consultation. TSH is low but patient is on levothyroxine for hypothyroidism. Urinalysis findings are suggestive of UTI. Although she was not complaining of symptoms consistent with UTI, when I reviewed test results with her and inquired specifically about UTI symptoms, she does report urinary frequency and malodor to her urine. She is given 100 mg Macrobid p.o. in the ED. Incidental note of hypokalemia (potassium 3.0) and she is given 25meq PO potassium bicarbonate. Her past medical history also includes adrenal insufficiency for which she takes fludrocortisone and prednisone 5 mg p.o. paul ly. Patient says that she has been instructed by her prescribing physician to take a 10 mg dose of prednisone for stressful situations and acute infectious issues. Thus, she is also given a 10 mg dose of prednisone p.o. while in the ED. Telepsychiatric consult obtained and recommendation is inpatient treatment. At the end of my shift patient is in ED awaiting placement and thus care of patient turned over to oncoming ED physician (Dr. Gurrola) Departure - Departure Disposition: 65 Psych Hosp/Unit DC/Xfer Clinical Impression: Suicidal ideation Condition: Good Forms: PCP List
[2023-10-10 21:58] LABS: ACETAMINOPHEN 0.2 ug/mL; ALBUMIN 4.8 g/dL (3.2-5.5); ALBUMIN/GLOBULIN RATIO 1.5 (1.0-2.2); ALKALINE PHOSPHATASE 57 IU/L (42-121); ALT ALANINE AMINOTRANSFERASE 12 IU/L (10-60); AST ASPARTATE AMINOTRANSFERASE 14 IU/L (10-42); BILIRUBIN,TOTAL 0.4 mg/dL (0.2-1.0); BUN - BLOOD UREA NITROGEN 15 mg/dL (6-20); CALCIUM 10.1 mg/dL (8.5-10.3); CARBON DIOXIDE - CO2 26 mmol/L (21-32); CHLORIDE 102 mmol/L (101-111); CREATININE 1.2 mg/dL (0.6-1.3); ETOH - ETHANOL < 10.0 mg/dL; GFR - MDRD 46 (>89); GLUCOSE 99 mg/dL (74-104); LIPASE 29 U/L (11-82); SODIUM 139 mmol/L (135-145)
[2023-10-10 22:02] LABS: AMPHETAMINE SCREEN,URINE NEGATIVE (NEGATIVE); BARBITURATE SCREEN,UR NEGATIVE (NEGATIVE); BENZODIAZEPINES SCREEN, URINE NEGATIVE (NEGATIVE); BUPRENORPHINE SCREEN, URINE NEGATIVE (NEGATIVE); COCAINE SCREEN URINE NEGATIVE (NEGATIVE); METHADONE SCREEN, URINE NEGATIVE (NEGATIVE); METHAMPHETAMINES SCREEN, URINE NEGATIVE (NEGATIVE); OPIATE SCREEN, URINE NEGATIVE (NEGATIVE); OXYCODONE SCREEN, URINE NEGATIVE (NEGATIVE); THC CANNABINOID SCREEN, URINE POSITIVE (NEGATIVE); TRICYCLIC ANTIDEPRESSANT,URINE POSITIVE (NEGATIVE)
[2023-10-10] MEDS ORDERED: predniSONE 5 MG TABLET PO STA (22:19)
[2023-10-10] MEDS ORDERED: NITROFURANTOIN MACRO 100 MG CAPSULE PO STA (22:20)
--- NOTE | 2023-10-10 22:47 | XRAY Report ---
PROCEDURE: Chest 1 View X-Ray INDICATIONS: chest pain TECHNIQUE: One view of the chest was acquired. COMPARISON: Chest x-ray 06/17/2019 FINDINGS: Surgical changes and devices: None. Lungs and pleura: No pleural effusions or pneumothorax. Lungs are clear. Mediastinum: Mediastinal contours appear normal. Heart size is normal. Bones and chest wall: No suspicious bony lesions. Overlying soft tissues appear unremarkable. IMPRESSION: No acute cardiopulmonary process. Reviewed by: Martina Patel MD on 10/10/2023 10:45 PM [facility] Approved by: Martina Patel MD on 10/10/2023 10:45 PM [facility] Station ID: [id number]
[2023-10-10 23:02] LABS: SALICYLATE < 1.5 mg/dL
[2023-10-10] MEDS ORDERED: POTASSIUM BICARB 25 MEQ TABLET PO STA (23:16)
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
[2023-10-11] MEDS ORDERED: BETAMETHASONE AUG 0.05% CREAM 15 GM TUBE TOP STA (03:31)
[2023-10-11] MEDS ORDERED: TRIAMCINOLONE 0.1% CREAM 15 GM TUBE TOP STA (03:59)
--- NOTE | 2023-10-11 08:37 | ED Physician Documentation ---
ED Addendum - Addendum Addendum: 10/11/23 08:16 - Patient care assumed at shift change. She has been seen by telepsychiatry and is awaiting voluntary inpatient psychiatric placement. Patient states that she did not sleep overnight as she did not receive her sleeping pill. She reports feeling frustrated as she is unsure of what is going on. I did give her an update that she has been recommended for voluntary psychiatric placement and that our [employer] company is working on placement and that social work will be around to see her today. I have ordered her home medications and she is aware that we do not carry oxybutynin. Patient reports feeling better now understanding the process. 10/11/23 09:02Patient has been accepted to [facility] under the care of of TESSA Oro. Patient has been updated regarding acceptance to [facility]. Departure - Departure Disposition: 65 Psych Hosp/Unit DC/Xfer Clinical Impression: Suicidal ideation Condition: Good Forms: PCP List Discharge Date/Time: 10/11/23 13:17
[2023-10-11] MEDS ORDERED: buPROPion XL 150 MG TABLET PO SCH (09:00)
[2023-10-11] MEDS ORDERED: GABAPENTIN 300 MG CAPSULE PO SCH (09:00)
[2023-10-11] MEDS ORDERED: SERTRALINE 50 MG TABLET PO SCH (09:00)
[2023-10-11] MEDS ORDERED: predniSONE 5 MG TABLET PO SCH (09:00)
[2023-10-11] MEDS ORDERED: FLUDROCORTISONE 0.1 MG TABLET PO SCH (09:00)
[2023-10-11] MEDS ORDERED: busPIRone 5 MG TABLET PO SCH (09:00)
[2023-10-11] MEDS ORDERED: NITROFURANTOIN MACRO 100 MG CAPSULE PO SCH (09:00)
[2023-10-11] MEDS ORDERED: LEVOTHYROXINE 125 MCG TABLET PO SCH (09:00)
[2023-10-11 13:12] VITALS: BP 132/96; O2SAT 96
== END 2023-10-11 13:17 ==
LOC: ED 20:15
DX: R45.851 Suicidal ideations (principal); F32.A Depression, unspecified
CPT/HCPCS: 36415; 71045; 80053; 80306; 80307; 81001; 83690; 84443; 84484; 85025; 87077; 87086; 87181; 87635; 93005; 99285; A9270; G0426; G0480; J7512; Q3014; 80320; 80329; 81003; 90834

== ENCOUNTER 2024-03-04 08:00 | Outpatient (CLI) | payer MEDICARE ==
[2024-03-04 18:00] LABS: BILIRUBIN,URINE NEGATIVE (NEGATIVE); CLARITY,URINE CLOUDY (CLEAR); GLUCOSE, URINE (UA) NEGATIVE (NEGATIVE); KETONES,URINE (UA) NEGATIVE (NEGATIVE); LEUKOCYTE ESTERASE, URINE SMALL (NEGATIVE); NITRITE,URINE POSITIVE (NEGATIVE); OCCULT BLOOD,URINE NEGATIVE (NEGATIVE); PROTEIN,URINE NEGATIVE (NEGATIVE); UROBILINOGEN,URINE 0.2 (NORMAL) E.U./dL (NORMAL)
[2024-03-04 18:07] LABS: RBC,URINE None Seen /HPF (0-5)
[2024-03-04 18:08] LABS: BACTERIA,URINE Moderate /HPF (None Seen); CRYSTALS,URINE 11-25 Ca Oxalate /LPF; SQUAMOUS EPITHELIAL CELL,UR FEW Squamous (<= Few)
== END 2024-03-04 23:59 | disposition home or self-care (01) ==
LOC: LAB.WCP 08:00
PROVIDERS: ATTEND Physician Assistant
DX: R30.0 Dysuria (principal)
CPT/HCPCS: 81001; 87077; 87086; 87181